=== PATIENT | female | born 1940 | race Caucasian/White ===

== ENCOUNTER 2023-07-26 09:05 | Inpatient (IN) | payer MEDICARE, SELFPAY ==
[2023-07-25 12:11] VITALS: BP 137/71
[2023-07-25 12:35] LABS: % Basophils 0.1 % (0-2); % Immature Granulocytes 0.5 % (0-0.5); % Lymphocytes 6.7 % (20.5-51.1); % Monocytes 8.1 % (1.7-9.3); % Neutrophils 84.6 % (42.2-75.2); Absolute Immature Granulocytes 0.1 10^3/uL (0-0.05); Absolute Lymphocytes 0.9 10^3/uL (1.2-3.4); Absolute Monocytes 1.1 10^3/uL (0.1-0.6); Absolute Neutrophils 11.3 10^3/uL (1.4-6.5); Hematocrit 30.7 % (37.0-47.0); Hemoglobin 10.7 g/dL (12.0-16.0); Mean Corp Hgb Conc. 34.9 g/dL (33.0-37.0); Mean Corpuscular Hgb 28.3 pg (27.0-31.0); Mean Corpuscular Volume 81.2 fL (81.0-99.0); Mean Platelet Volume 9.8 fL (7.4-10.4); Nucleated Red Blood Cells % 0 %; Platelet Count 183 10^3/uL (130-400); Red Blood Cell Count 3.78 10^6/uL (4.20-5.40); White Blood Cell Count 13.4 10^3/uL (4.8-10.8)
[2023-07-25 12:59] LABS: ALT (SGPT) 17 U/L (0-35); AST (SGOT) 19 U/L (14-36); Albumin 3.8 g/dl (3.5-5.0); Alkaline Phosphatase 57 U/L (38-126); Blood Urea Nitrogen 9 mg/dl (7-17); Calcium 9.1 mg/dl (8.4-10.2); Carbon Dioxide 23 mmol/L (22-30); Chloride 99 mmol/L (98-107); Glucose 219 mg/dl (70-99); Lipase 40 U/L (23-300); Potassium 3.9 mmol/L (3.5-5.1); Sodium 129 mmol/L (135-145); Total Bilirubin 3.2 mg/dl (0.2-1.3); Total Protein 6.7 g/dl (6.3-8.2); eGFR > 60.00
[2023-07-25 13:05] LABS: Troponin I 0.034 ng/ml
--- NOTE | 2023-07-25 15:27 | ED.GENMED ---
History of Present Illness
<Prabha Olsen PA-C - Last Filed: 07/25/23 18:07>
General
Chief Complaint: Abdominal Pain
Source: patient
Exam Limitations: none
Time Seen by Provider: 07/25/23 15:26
Nursing documentation reviewed up to this point in time: agreed with
Travel History
Have you had any contact with someone who has COVID-19?: No
Do you have any symptoms of coronavirus? Fever > 100 degrees, chills, cough, shortness of breath, sore throat, loss of taste or smell, muscle aches, or headache?: No
History of Present Illness
History of Present Illness:
82 y/o female with PMH of afib on eliquis, HTN, HLP, sleep apnea, diabetes, presenting to the emergency department today with abdominal pain and nausea that started last night. Patient has never had anything like this before. Patient states that the
pain started out of no where and she immediately got nausea and started to dry heave. Patient also states that she has had loose stools as of late. Patient also states that her chronic shortness of breath has gotten worse this past week, and patient
also states that she has had some dizziness when she walks. Patient states that her pain subsides when she stays still, but her pain returns with any movement. Patient denies chest pain, syncopal episodes, coughing, upper respiratory symptoms,
sick contacts. Patient denies daily alcohol use.
Review of Systems
<Prabha Olsen PA-C - Last Filed: 07/25/23 18:07>
Review of Systems
All Other Systems: ROS reviewed and negative except as documented in HPI and ROS
Phy Exam
<Prabha Olsen PA-C - Last Filed: 07/25/23 18:07>
Physical Exam
Physical Exam:
Vitals: Patient's vital signs are stable
General: Patient is well appearing and in no acute distress
Skin: Warm and dry, no rashes or lesions
Head: Normocephalic, atraumatic
Eyes: No nystagmus. EOMs intact.
Cardiac: Regular rate and rhythm, 2+ systolic murmur heard
Peripheral Vascular: Left sided patellar ecchymosis. No lower extremity edema. 2+ DP pulses b/l.
Pulm: Normal respiratory effort. Crackles heard in left lower lobe.
Abdomen: Mild tenderness to palpation in the epigastric area. No organomegaly. No rebound tenderness, no rigidity.
Neuro: CN II-XII intact. AAOx3. No focal neurologic deficits.
Course
<Prabha Olsen PA-C - Last Filed: 07/25/23 18:07>
Orders/Labs/Results
Orders:
Orders
07/25/23 12:18
Electrocardiogram (*1) Urgent
Reason for Study: Chest Pain
EKG- Treatment ONCE
07/25/23 12:21
Complete Blood Count/With Diff Urgent
Comprehensive Metabolic Panel Urgent
Lipase Urgent
Troponin I Urgent
07/25/23 15:52
CR Chest - 2 Views Urgent
Comment:
Reason For Exam: shortness of breath
07/25/23 15:55
0.9% Sodium Chloride 500 ml [Nss] 500 ml IV BOLUS
07/25/23 16:09
Ondansetron Injectable [Zofran] 4 mg IV NOW STA
US Abdomen Limited Urgent
Comment:
Reason For Exam: right upper quadrant (s/p cholecystectomy)
07/25/23 16:38
Troponin I Urgent
Urinalysis Reflex To Culture Urgent
Date Specimen was Collected: 07/25/23
Time Specimen was Collected: 16:36
Urine Microscopic Reflex Cult Urgent
Influenza A+B Rapid Molecular Urgent
MELODY Source: Nasal Swab
Specimen Description:
Urine Culture Urgent
MELODY Source: U
Specimen Description:
Date Specimen was Collected: 07/25/23
Time Specimen was Collected: 16:36
07/25/23 17:30
Sulfamethox./Trimethoprim Ds [Bactrim Ds 800 mg/160 mg] 1 tablet PO NOW STA
Abnormal Lab Results
07/25/23 07/25/23
12:21 16:38
WBC 13.4 H 10^3/uL
(4.8-10.8)
RBC 3.78 L 10^6/uL
(4.20-5.40)
Hgb 10.7 L g/dL
(12.0-16.0)
Hct 30.7 L %
(37.0-47.0)
Abs Immat Gran (auto) 0.1 H 10^3/uL
(0-0.05)
Absolute Neuts (auto) 11.3 H 10^3/uL
(1.4-6.5)
Absolute Lymphs (auto) 0.9 L 10^3/uL
(1.2-3.4)
Absolute Monos (auto) 1.1 H 10^3/uL
(0.1-0.6)
Neutrophils % 84.6 H %
(42.2-75.2)
Lymphocytes % 6.7 L %
(20.5-51.1)
Sodium 129 L mmol/L
(135-145)
Glucose 219 H mg/dl
(70-99)
Total Bilirubin 3.2 H mg/dl
(0.2-1.3)
Urine Ketones 1+ A
(Negative)
Ur Occult Blood Reflex Trace A
(Negative)
Urine Nitrite (Reflex) Positive A
(Negative)
Leukocyte Esterase Rfl 2+ A
(Negative)
Urine WBC (Reflex) 30-40 A /HPF
(0-5)
Urine Bacteria (Reflex) Many A
(Negative)
Urine Albumin (Reflex) 1+ A
(Neg - Trace)
07/25/23 12:21
07/25/23 12:21
Vital Signs
Initial and Last Documented VS:
Initial Vital Signs
Temp Pulse Resp BP Pulse Ox
99.6 F 80 18 137/71 95
07/25/23 12:11 07/25/23 12:11 07/25/23 12:11 07/25/23 12:11 07/25/23 12:11
Last Documented Vital Signs
Temp Pulse Resp BP Pulse Ox
99.6 F 98 10 137/47 96
07/25/23 12:11 07/25/23 16:31 07/25/23 16:31 07/25/23 16:31 07/25/23 16:31
<Aston Clark, DO - Last Filed: 07/25/23 17:26>
Orders/Labs/Results
Orders:
Orders
07/25/23 12:18
Electrocardiogram (*1) Urgent
Reason for Study: Chest Pain
EKG- Treatment ONCE
07/25/23 12:21
Complete Blood Count/With Diff Urgent
Comprehensive Metabolic Panel Urgent
Lipase Urgent
Troponin I Urgent
07/25/23 15:52
CR Chest - 2 Views Urgent
Comment:
Reason For Exam: shortness of breath
07/25/23 15:55
0.9% Sodium Chloride 500 ml [Nss] 500 ml IV BOLUS
07/25/23 16:09
Ondansetron Injectable [Zofran] 4 mg IV NOW STA
US Abdomen Limited Urgent
Comment:
Reason For Exam: right upper quadrant (s/p cholecystectomy)
07/25/23 16:38
Troponin I Urgent
Urinalysis Reflex To Culture Urgent
Date Specimen was Collected: 07/25/23
Time Specimen was Collected: 16:36
Urine Microscopic Reflex Cult Urgent
Influenza A+B Rapid Molecular Urgent
MELODY Source: Nasal Swab
Specimen Description:
Urine Culture Urgent
MELODY Source: U
Specimen Description:
Date Specimen was Collected: 07/25/23
Time Specimen was Collected: 16:36
07/25/23 17:30
Sulfamethox./Trimethoprim Ds [Bactrim Ds 800 mg/160 mg] 1 tablet PO NOW STA
Abnormal Lab Results
07/25/23 07/25/23
12:21 16:38
WBC 13.4 H 10^3/uL
(4.8-10.8)
RBC 3.78 L 10^6/uL
(4.20-5.40)
Hgb 10.7 L g/dL
(12.0-16.0)
Hct 30.7 L %
(37.0-47.0)
Abs Immat Gran (auto) 0.1 H 10^3/uL
(0-0.05)
Absolute Neuts (auto) 11.3 H 10^3/uL
(1.4-6.5)
Absolute Lymphs (auto) 0.9 L 10^3/uL
(1.2-3.4)
Absolute Monos (auto) 1.1 H 10^3/uL
(0.1-0.6)
Neutrophils % 84.6 H %
(42.2-75.2)
Lymphocytes % 6.7 L %
(20.5-51.1)
Sodium 129 L mmol/L
(135-145)
Glucose 219 H mg/dl
(70-99)
Total Bilirubin 3.2 H mg/dl
(0.2-1.3)
Urine Ketones 1+ A
(Negative)
Ur Occult Blood Reflex Trace A
(Negative)
Urine Nitrite (Reflex) Positive A
(Negative)
Leukocyte Esterase Rfl 2+ A
(Negative)
Urine WBC (Reflex) 30-40 A /HPF
(0-5)
Urine Bacteria (Reflex) Many A
(Negative)
Urine Albumin (Reflex) 1+ A
(Neg - Trace)
07/25/23 12:21
07/25/23 12:21
Vital Signs
Initial and Last Documented VS:
Initial Vital Signs
Temp Pulse Resp BP Pulse Ox
99.6 F 80 18 137/71 95
07/25/23 12:11 07/25/23 12:11 07/25/23 12:11 07/25/23 12:11 07/25/23 12:11
Last Documented Vital Signs
Temp Pulse Resp BP Pulse Ox
99.6 F 98 10 137/47 96
07/25/23 12:11 07/25/23 16:31 07/25/23 16:31 07/25/23 16:31 07/25/23 16:31
<Prabha Olsen PA-C - Last Filed: 07/25/23 18:07>
MDM/Problems Addressed
Differential Diagnosis Includes:
ddx include gastritis, hepatitis, ACS, pancreatitis, atrial fibrillation, pneumonia, diaphragmatic spasm
MDM/Problems Addressed:
dyspepsia
shortness of breath
Chronic conditions affecting care: DM, HTN and Arrhythmia
Acute Exacerbation and/or Progression of Chronic Illness: DM, HTN and Arrhythmia
<Prabha Olsen PA-C - Last Filed: 07/25/23 18:07>
*Pulse Oximetry
Patient hypoxic: no
*EKG
Interpreted by ED Provider?: Yes
EKG Intrepretation Date: 07/25/23
Interpretation: abnormal
Comparison EKG: changes noted
Heart Rate: 83
Rate: normal
Rhythm: a-fib
Lima: normal axis
Interval: normal interval
QRS Pattern: normal QRS
Ischemia: non-specific ST changes (mild ST segment elevation in V1)
*Critical Care Note
Total Time (30-74mins, 75-104mins- exclusive of procedures): Not Applicable
Data Reviewed
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
Source: patient
<Prabha Olsen PA-C - Last Filed: 07/25/23 18:07>
Patient Management
Escalation/DeEscalation of care consider admission/obs:
82 y/o female with PMH of afib on eliquis, HTN, HLP, sleep apnea, diabetes, presenting to the emergency department today with abdominal pain and nausea that started last night. Also has acute on chronic SOB. Troponin I 0.034, repeat pending. EKG
significant for atrial fibrillation and non-specific ST changes including mild ST segment elevation in V1. Also has elevated total bili. Right upper quadrant US unremarkable. Also found to have UTI, bactrim started. Considering new EKG findings,
non-negative troponin, dyspnea upon exertion, and no clear cause to patient's epigastric pain, patient will be admitted for further workup and DC rule out. Patient accepted by hospitalist team. Patient in agreement with plan.
ED Attending Note
<Prabha Olsen PA-C - Last Filed: 07/25/23 18:07>
-
Portions of this chart may have been created with voice recognition software.� Occasional wrong word or��sound alike� substitutions may have occurred due to the inherent limitations of voice recognition software.
<Aston Clark DO - Last Filed: 07/25/23 17:26>
ED Attending Note
Patient seen and examined by attending physician: Yes
I performed the substantive portion of visit, reviewed & personally made and approve the management plan that is documented in note by myself or IRENE.: Yes
ED Attending Note:
Seen with JOSH examined independently 82-year-old female A-fib recently [place] CAD status post stenting presents with nausea epigastric pain dry heaves, denies chest pain EKG noted initial troponin noted repeat has been sent
total bili is elevated ultrasound unremarkable sodium is down
Conglomeration of symptoms believe she should be admitted rule out DC, consideration for advanced imaging, correct her sodium
Discharge Plan
Departure
Admit to: Med/Surg
Presentation/result/management discussed w/ accepting MD/DO: Hospitalist
Patient with high blood pressure during this ER visit?: Yes
Condition: Good
Discharge Problem:
Acute hyponatremia, Acute epigastric pain
Prescriptions:
No Action
losartan 25 MG tablet
25 mg PO HS
metoprolol succinate 25 MG tablet extended release 24 hr
50 mg PO BID
Eliquis 5 MG tablet
5 mg PO BID
duloxetine 60 mg Capsule, Delayed Rel Sprinkle
60 mg PO DAILY
diphenhydramine HCl [Benadryl] 25 mg Capsule
25 mg PO HS
diphenhydramine-acetaminophen [Tylenol PM Extra Strength] 25-500 mg Tablet
1 tab PO HS
metformin 500 mg Tablet
500 mg BID
clopidogrel [Plavix] 75 mg tablet
75 mg PO DAILY Qty: 90 3RF
Rx Instructions:
Take 300mg (4 pills) tonight at 8pm, then start 75mg daily in AM
atorvastatin [Lipitor] 80 mg tablet
80 mg PO HS Qty: 90 3RF
Rx Instructions:
STOP pravastatin
aspirin [aspirin] 81 mg tablet,delayed release (DR/EC)
81 mg PO DAILY Qty: 5 0RF
Rx Instructions:
DAILY for 5 days, then STOP
famotidine [Pepcid] 40 mg tablet
40 mg PO DAILY Qty: 90 3RF
Referrals:
Christian Gandara DO [Family Provider] -
Interventions
Interventions:
*Risk Screen - Suicide Last Done: 07/25/23 12:11
*General Assessment Last Done: 07/25/23 12:11
*Neglect/Abuse Screening Last Done: 07/25/23 12:11
BH-Sbcetd-Wbmintrlty Assessment Last Done: 07/25/23 16:42
Discharge Date and Time
Print Language: [place]
[2023-07-25 16:31] VITALS: BP 137/47
[2023-07-25] MEDS: NSS 500 IV (16:33)
[2023-07-25] MEDS: ZOFRAN 4 MG IV ×2 (16:33→21:42)
[2023-07-25 16:44] LABS: Urine Albumin 1+ (Neg - Trace); Urine Bilirubin Negative (Negative); Urine Character Slightly Cloudy (Clear); Urine Color Yellow; Urine Glucose Negative (Negative); Urine Ketone 1+ (Negative); Urine Leukocyte 2+ (Negative); Urine Nitrite Positive (Negative); Urine Occult Blood Trace (Negative); Urine Urobilinogen Negative (Neg - 1+)
[2023-07-25 16:51] LABS: Urine Bacteria Many (Negative); Urine Urothelial Cell 0-2 /LPF (FEW); Urine White Cell 30-40 /HPF (0-5)
[2023-07-25 16:52] LABS: Urine Red Blood Cell 0-2 /HPF (0-2)
[2023-07-25] MEDS: BACTRIM DS 800 MG/160 MG 1 TABLET PO (17:51)
--- NOTE | 2023-07-25 18:27 | HPS.HSE ---
Addendum entered and electronically signed by Jaydon Min MD 07/25/23 19:45:
Protonix changed to Pepcid given allergy.
Original Note:
Family Physician
-
Family Physician: Christian Gandara
Chief Complaint
-
abdominal pain
History of Present Illness
82-year-old female past medical history of atrial fibrillation on Eliquis, CAD status post stent, hypertension, hyperlipidemia, sleep apnea, diabetes, obesity, GERD, presenting for epigastric abdominal pain started suddenly last night. This was
associated with dry heaving and spasms in the epigastric region. 1 time she notes that she felt pulsating in the region. Pain is worse with movement and improves when she stays still. Pain does not radiate to the back or flanks does radiate to
the chest. During one instance of pain she felt like she was going to pass out but did not pass out.
She states that she had ablation for atrial fibrillation last year. She was visiting her son in [facility] where she has been for the past month. She was admitted there for symptomatic atrial fibrillation. She was given 2 medications to take. She
has episodic instances of chest pressure/shortness of breath which come on randomly.
She denies any urinary symptoms or frequency. She denies fevers or chills. Denies difficulty swallowing or pain with swallowing or burping. Denies history of gastric ulcers.
She denies smoking or alcohol use.
Medical History
Past Medical History
Past Medical History: Reports Other (atrial fibrillation on Eliquis, CAD status post stent, hypertension, hyperlipidemia, sleep apnea, diabetes, obesity, GERD)
Past Surgical History: Reports Other (Appendectomy, cholecystectomy, colon resection for polyp, orthopedic surgeries, carpal tunnel surgery, back surgery)
Social History
Tobacco: Non-smoker
Alcohol: None
Drug: None
Family History
Family History: Not pertinent
Allergies / Home Medications
Allergies reflects when Allergies were last updated in [facility].
Home Medications with original date entered in [facility]
Allergy/Medication List:
Allergies
Allergy/AdvReac Type Severity Reaction Status Date / Time
HEMALATHA Inhibitors Allergy cough Verified 03/16/23 07:27
amoxicillin Allergy Rash Verified 03/16/23 07:27
niacin Allergy flushing Verified 03/16/23 07:27
oxaprozin Allergy chemical Verified 03/16/23 07:27
induced
hepatitis
pantoprazole [From Protonix] Allergy rapid Verified 03/16/23 07:27
heart rate
vancomycin Allergy back pain Verified 03/16/23 07:27
Home Medications
apixaban 5 mg tablet (Eliquis) 5 mg PO BID 10/01/21
metoprolol succinate 25 mg tablet,extended release 24 hr 50 mg PO BID 10/01/21
duloxetine 60 mg capsule,delayed release sprinkle 60 mg PO DAILY 03/03/22
atorvastatin 80 mg tablet (Lipitor) 80 mg PO HS #90 tabs 03/16/23
clopidogrel 75 mg tablet (Plavix) 75 mg PO DAILY #90 tabs 03/16/23
metformin 500 mg tablet 500 mg PO BID 03/16/23
Unknown Med From [place] 1 tab PO BID 07/25/23
Unknown Med From [place] 1 tab PO DAILY 07/25/23
Review of Systems
-
History Source: Patient
A 12 point ROS was completed and negative except as noted: Yes
Constitutional: Reports No Symptoms
EENT: Reports No Symptoms
Respiratory: Reports No Symptoms
Cardiac: Reports See HPI
Abdomen/GI: Reports See HPI
: Reports No Symptoms
Musculoskeletal: Reports No Symptoms
Skin: Reports No Symptoms
Neurological: Reports No Symptoms
Endocrine: Reports No Symptoms
Hematologic/Lymphatic: Reports No Symptoms
Psych: Reports No Symptoms
Physical Exam
Vital Signs
Vital Signs
Temp Pulse Resp BP Pulse Ox
99.6 F 98 10 137/47 96
07/25/23 12:11 07/25/23 16:31 07/25/23 16:31 07/25/23 16:31 07/25/23 16:31
Physical Exam
General: Well Developed, Well Nourished and No Apparent Distress
HEENT: NormoCephalic, Moist mucous membranes and Atraumatic
Respiratory: Clear
Cardiac: S1/S2 and Regular Rhythm; No Murmur or Rub
GI: Soft, Non Distended, Normal Bowel Sounds and Tender (epigastric tenderness ); No Organomegaly
Rectal: Deferred by Provider
Musculoskeletal: No Clubbing, No Cyanosis and No Edema
Skin: No Rash
Neuro: Nonfocal/grossly intact
Laboratory Results
-
07/25/23 12:21
07/25/23 12:21
Laboratory Results
Total Bilirubin 3.2 mg/dl (0.2-1.3) H 07/25/23 12:21
AST 19 U/L (14-36) 07/25/23 12:21
ALT 17 U/L (0-35) 07/25/23 12:21
Alkaline Phosphatase 57 U/L (38-126) 07/25/23 12:21
Troponin I 0.030 ng/ml 07/25/23 16:38
Lipase 40 U/L (23-300) 07/25/23 12:21
Data Reviewed
-
Lab Data: Labs Reviewed by me
Old Records: Reviewed
Impression/Plan
-
IMPRESSION:
PLAN:
# Epigastric abdominal pain possibly due to gastritis/ulcer evaluate for aortic aneurysm
-Epigastric region tender to palpation
-Lipase unremarkable
-Check CTA chest/abdomen to rule out aortic pathology and evaluate abdomen for sources of pain
-Empiric Protonix
# Symptomatic recurrence of atrial fibrillation
# Abnormal EKG with delta wave
-EKG showed atrial fibrillation, left anterior fascicular block, delta waves in lateral leads which appear new without any notable ST T wave changes
-Initial troponin 0.034, trending down
-Continue metoprolol
-Continue Eliquis
-Cardiology consulted
# Urinary tract infection
-Abdominal symptoms unlikely secondary to UTI
-Leukocytosis
-UA shows 30-40 WBC, positive nitrates, positive leukocyte esterase
-Urine culture pending
-Levaquin given allergies
Coronary artery disease status post stent
-Continue Plavix
History of GERD
-Protonix started
Essential hypertension
-Continue losartan
Hyperlipidemia
-Continue statin
Obstructive sleep apnea
-Continue BiPAP at night
Type 2 diabetes
-Hold metformin
-Insulin sliding scale
Obesity
History of back surgery/chronic back pain
-Continue duloxetine
Full code
DVT prophylaxis-Eliquis
Regular diet
--- NOTE | 2023-07-25 19:44 | EDRN ---
Dr. Min made aware pt is allergic to protonix which is ordered BID. Dr. Min acknowledged and will discontinue protonix.
[2023-07-25] MEDS: PEPCID 20 MG IV (20:30)
[2023-07-25] MEDS: NSS (PRESERVATIVE FREE) 8 ML IV (20:30)
[2023-07-25] MEDS: FLUSH (NSS) 1 FLUSH IV (20:31)
--- NOTE | 2023-07-25 21:30 | EDRN ---
Pt yelling out help, this RN entered room to see what pt needed. Pt found on floor at end of stretcher, pt was sitting up against stretcher. Pt states 'I lost my balance, slipped out of bed and fell to the ground, I needed to go to the bathroom'. Pt
denies hitting her head or LOC. Pt denies any neck pain or c spine tenderness. Pt assisted back up and placed into the stretcher. Renea De La Torre made aware of pts fall and she is coming to bedside. Pt with GCS of 15, blood sugar 210, BP 160/79, HR
96, RR 22, Sao2 95% on RA. Pt denies pain or any injuries from fall. Both stretcher side rails raised and pt placed on purwick.
[2023-07-25 21:38] VITALS: BP 160/79
[2023-07-25 21:45] LABS: Glucose - Point of Care 210 mg/dl (70-99)
--- NOTE | 2023-07-25 21:57 | W.PN.UPDATE ---
Update Note
Progress Note Update
notified by RN that pt had unwitnessed fall
Pt states she did not know that she had to call for assistance to get oob. She was getting oob and 'slid' off bed onto her butt.
PT denies injuries. EAST
PT adamantly denies hitting head. Explained that she does take eliquis so imperative she is honest. Again denies hitting head.
Explained to pt is she should have any pain later to let nurse know. And to please ring for assistance going forward.
PT is AAoX3
[2023-07-25 22:00] VITALS: BP 176/84
[2023-07-25 22:10] VITALS: PULSE 2; PULSE 86
[2023-07-25 23:00] VITALS: BP 160/82
[2023-07-26] VITALS (12 sets, daily range): BP systolic 96–167; BP diastolic 55–84; PULSE 2–88; BMI 38.5
[2023-07-26] MEDS: TOPROL XL 50 MG PO ×2 (00:29→09:43)
[2023-07-26] MEDS: ELIQUIS 5 MG PO ×3 (00:29→20:13)
[2023-07-26] MEDS: LIPITOR 80 MG PO ×2 (00:29→21:34)
[2023-07-26] MEDS: LEVAQUIN 150 IV (00:30)
[2023-07-26] MEDS: TYLENOL 650 MG PO ×2 (01:50→20:13)
--- NOTE | 2023-07-26 01:50 | PTCARENOTE ---
Pt arrived to room 414-02. Pt transferred to bed from stretcher. Pt AAOx3, VSS- temp 100.8 noted; tylenol ordered and administered. Pt c/o nausea, zofran administered prior to arriving on 4W. Pt in no signs of acute distress, respirations regular.
Pt placed on bed alarm d/t fall in ED. Pt oriented to room, call ordaz placed within reach.
--- NOTE | 2023-07-26 06:53 | W.PN.HOSP.TC ---
Today's Communication/Plan
-
cont abx
blood cultures and lactic acid
check strep legionella urine antigen
ID Cardio GI eval
Check BNP ECHO
cont Eliquis Plavix
IV famotidine BID
oxygen supplementation as necessary goal sat 92%
Assessment / Plan
Assessment / Plan
Physical Exam
General: mild distress due to nausea vomiting. Morbid Obesity
HEENT: NormoCephalic, Moist mucous membranes and Atraumatic
Respiratory: Clear
Cardiac: Irregularly irregular mild tachy; No Murmur or Rub
GI: Soft, Non Distended, Normal Bowel Sounds and Tender (epigastric tenderness ); No Organomegaly
Musculoskeletal: No Clubbing, No Cyanosis and No Edema
Skin: No Rash
Neuro: Nonfocal/grossly intact
82F afib CAD stent Feb 2023 Eliquis Plavix HTN HLD DM YOSELIN BIPAP bedtime Obesity GERD
# Epigastric abdominal pain spasm nausea vomiting unclear etiology
-possible GERD vs PUD
-Epigastric region tender to palpation
-Lipase unremarkable
-CTA chest/abdomen negative for dissection aneurysm or pulmonary embolism, notes mild fatty liver disease, left lower lobe lung pna with small left pleural effusion
-Empiric IV pepcid, allergic to protonix
-GI eval requested
# Symptomatic recurrence of atrial fibrillation
# Abnormal EKG with delta wave
-EKG showed atrial fibrillation, left anterior fascicular block, delta waves in lateral leads which appear new without any notable ST T wave changes
-Initial troponin 0.034, trended down
-Continue metoprolol
-Continue Eliquis
-Recently started on Amiodarone and Digoxin following hospitalization in [place] last month while visiting son,
-check digoxin level in AM
-Cardiology consulted
-rate relatively well controlled at this time, holding Amiodarone and Digoxin at this time pending cardio eval
-check BNP, ECHO
#Possible Urinary tract infection
-Abdominal symptoms unlikely secondary to UTI
-Leukocytosis
-UA shows 30-40 WBC, positive nitrates, positive leukocyte esterase
-Urine culture pending
-Levaquin given allergies
Possible Sepsis PNA (Leukocytosis, Tachycardia)
Acute Hypoxic Insufficiency/Failure (requiring 2L saturating 93%)
-Left Lower Lobe PNA as noted on CT
-COVID Flu neg
-check strep legionella urine antigen
-Started on Levaquin as above
-Check Lacti Acid
-ID eval requested
Coronary artery disease status post stent
-Continue Plavix
History of GERD
-Famotidine IV BID started
Essential hypertension
-Continue losartan
Hyperlipidemia
-Continue statin
Obstructive sleep apnea
-Continue BiPAP at night
Type 2 diabetes
-Hold metformin
-Insulin sliding scale
Obesity
History of back surgery/chronic back pain
-Continue duloxetine
Full code
DVT prophylaxis-Eliquis
Regular diet
I spent a total of 60 minutes with the patient or on the floor. More than 50% of this time involved counseling and coordination of care.
Anticipated Discharge: > 48 hours
Subjective/Interval History
-
Date of Service: July 26, 2023
Reports sleeping well last night following admission. However dry heaves coughing in morning with associate nausea vomiting. Patient on 2L nasal cannula saturating 93%. Non-labored respiration. Noted fever overnight peak 100.8 since resolved.
Objective Data
-
Labs:
Laboratory Results
07/26/23
06:31
WBC Pending
Hgb Pending
Hct Pending
Plt Count Pending
Sodium Pending
Potassium Pending
Chloride Pending
Carbon Dioxide Pending
BUN Pending
Creatinine Pending
Glucose Pending
Calcium Pending
Total Bilirubin Pending
AST Pending
ALT Pending
Alkaline Phosphatase Pending
Vital Signs:
Vital Signs
Temp Pulse Resp BP Pulse Ox
100.4 F H 88 16 137/63 94
07/26/23 03:00 07/26/23 03:00 07/26/23 03:00 07/26/23 03:00 07/26/23 03:00
I&O
07/24/23 07/25/23 07/26/23
06:59 06:59 06:59
Intake Total 420 / 420
Output Total 350 / 350
Balance 70 / 70
[2023-07-26 07:38] LABS: % Basophils 0.3 % (0-2); % Immature Granulocytes 0.7 % (0-0.5); % Lymphocytes 9.5 % (20.5-51.1); % Monocytes 11.2 % (1.7-9.3); % Neutrophils 78.3 % (42.2-75.2); Absolute Immature Granulocytes 0.1 10^3/uL (0-0.05); Absolute Lymphocytes 1.3 10^3/uL (1.2-3.4); Absolute Monocytes 1.5 10^3/uL (0.1-0.6); Absolute Neutrophils 10.7 10^3/uL (1.4-6.5); Hemoglobin 10.6 g/dL (12.0-16.0); Mean Corp Hgb Conc. 34.2 g/dL (33.0-37.0); Mean Corpuscular Hgb 28.4 pg (27.0-31.0); Mean Corpuscular Volume 83.1 fL (81.0-99.0); Mean Platelet Volume 10.1 fL (7.4-10.4); Nucleated Red Blood Cells % 0 %; Platelet Count 124 10^3/uL (130-400); Red Blood Cell Count 3.73 10^6/uL (4.20-5.40); Red Cell Dist. Width 14.2 % (11.5-14.5); White Blood Cell Count 13.7 10^3/uL (4.8-10.8)
[2023-07-26 08:00] LABS: Glucose - Point of Care 161 mg/dl (70-99)
[2023-07-26 08:04] LABS: ALT (SGPT) 15 U/L (0-35); AST (SGOT) 24 U/L (14-36); Albumin 3.6 g/dl (3.5-5.0); Alkaline Phosphatase 43 U/L (38-126); Blood Urea Nitrogen 10 mg/dl (7-17); Calcium 8.5 mg/dl (8.4-10.2); Carbon Dioxide 19 mmol/L (22-30); Chloride 100 mmol/L (98-107); Estimated Creatinine Clearance 76 ml/min; Glucose 164 mg/dl (70-99); Potassium 4.2 mmol/L (3.5-5.1); Sodium 130 mmol/L (135-145); Total Bilirubin 3.1 mg/dl (0.2-1.3); Total Protein 6.6 g/dl (6.3-8.2); eGFR > 60.00
[2023-07-26 08:56] LABS: COVID-19 Antigen Negative (Negative)
[2023-07-26] MEDS: PLAVIX 75 MG PO (09:43)
[2023-07-26] MEDS: CYMBALTA DELAYED RELEASE 60 MG PO (09:43)
[2023-07-26] MEDS: NSS (PRESERVATIVE FREE) 8 ML IV ×2 (09:44→20:14)
[2023-07-26] MEDS: PEPCID 20 MG IV ×2 (09:44→20:14)
[2023-07-26 10:06] LABS: Lactic Acid 1.8 mmol/L (0.7-2.0)
--- NOTE | 2023-07-26 10:21 | CON.CAR ---
Addendum entered and electronically signed by Marcus Guerrero DO 07/26/23 15:57:
I saw and examined the patient.
The Integration Solution Architect's note was reviewed and I agree with the note.
Comment:
Plan:
Cont broad-spectrum antibiotics per primary service for PNA and possible UTI. Cultures pending.
Wean O2 as able.
Increase AFib burden, start Amiodarone for better HR control and rhythm control. She remains on Eliquis for prophylaxis.
Stop Digoxin and continue beta javier for rate control and adjust beta javier as needed for better HR control and bp control.
Check Dig level.
Eventual consideration for cv once infection improved and pending clinical course
Check echo
Continue Plavix in addition to anticoagulation in the setting of LAD stent 02/2023. Cont medical therapy of nonMI trop.
Monitor EKG
Original Note:
Consultation
Consultation Request
Date/Time Consultation Performed: 07/26/23
Requesting Provider: Dr. Min
Performing Provider: Jazmine Alvarado PA-C for Dr. Guerrero
Reason for Consultation: abnormal EKG, afib
Medical History
-
Chief Complaint: epigastric pain, dry heaves
History of Present Illness:
Patient is an 82-year-old female with past medical history of CAD status post LAD PCI 02/2023, paroxysmal atrial fibrillation, diabetes, hypertension, hyperlipidemia, obstructive sleep apnea who had recently visited her son in [facility] last month.
She tells me she was hospitalized during her visit there. She is a poor historian. She states she was walking with her son and developed epigastric pain, squeezing in sensation, which took her breath away. She had the feeling of needing to pass
out, as well as urinary incontinence. She was admitted and in A-fib with rapid response. She denies having a cardioversion, so presumably spontaneously converted on 'IV medication'. She was started on amiodarone 200 mg daily as well as digoxin
0.25 mg twice daily, which she has continued since that time. She returned home last week. She states he has been jet lag, however has noted 'issues with her A-fib' with elevated heart rates, as well as dyspnea on exertion. She denies chest pain,
cough. She presented to [facility] yesterday as with significant dry heaves all day, and also had fever on arrival. Chest CT negative for dissection or PE, however did reveal pneumonia. COVID-negative. She is in atrial fibrillation with
heart rate approximately 100 bpm. Cardiology consulted as EKG abnormal.
PMH:
Recent hospitalization in [facility] 06/2023 for afib, spontaneously converted, started on amio and digoxin
CAD status post LAD PCI 02/2023
Paroxysmal atrial fibrillation
Chronic anticoagulation with Eliquis
History of PVI 02/2022
PAT
Hypertension
HLD
Diabetes
Sleep apnea with CPAP
Obesity
History of cervical spinal fusion 04/2021
Past Medical History
Past Medical History: Other (in HPI)
Social History
Tobacco: Former Smoker
Alcohol: Occasional
Living: Alone
Employment: Retired
Family History
Family History: CAD, Diabetes and Hypertension
Allergies / Home Medications
Allergy/AdvReac Type Severity Reaction Status Date / Time
HEMALATHA Inhibitors Allergy cough Verified 03/16/23 07:27
amoxicillin Allergy Rash Verified 03/16/23 07:27
niacin Allergy flushing Verified 03/16/23 07:27
oxaprozin Allergy chemical Verified 03/16/23 07:27
induced
hepatitis
pantoprazole [From Protonix] Allergy rapid Verified 03/16/23 07:27
heart rate
vancomycin Allergy back pain Verified 03/16/23 07:27
�Medication �Instructions �Recorded �Confirmed �Type
apixaban 5 mg tablet (Eliquis) 5 mg PO BID atrial fibrillation 10/01/21 07/25/23 History
metoprolol succinate 25 mg 50 mg PO BID Blood Pressure 10/01/21 07/25/23 History
tablet,extended release 24 hr
duloxetine 60 mg capsule,delayed 60 mg PO DAILY Depression 03/03/22 07/25/23 History
release sprinkle
atorvastatin 80 mg tablet (Lipitor) 80 mg PO HS #90 tabs 03/16/23 07/25/23 Rx
clopidogrel 75 mg tablet (Plavix) 75 mg PO DAILY #90 tabs 03/16/23 07/25/23 Rx
metformin 500 mg tablet 500 mg PO BID diabetes 03/16/23 07/25/23 History
amiodarone 200 mg tablet 200 mg PO DAILY Arrhythmia 07/25/23 07/25/23 History
digoxin 250 mcg (0.25 mg) tablet 0.25 mg PO BID atrial fibrillation 07/25/23 07/25/23 History
Review of Systems
-
History Source: Patient
All other systems: Negative unless noted
Physical Exam
Vital Signs
Temp Pulse Resp BP Pulse Ox
98.9 F 96 18 148/84 93
07/26/23 07:30 07/26/23 07:30 07/26/23 07:30 07/26/23 08:30 07/26/23 08:30
Lab Results
07/26/23 06:31
07/26/23 06:31
Troponin I 0.030 ng/ml 07/25/23 16:38
Physical Exam
General: No Apparent Distress, Comfortable and Other (on supp O2)
HEENT: Normocephalic, Anicteric and Moist Mucous Membranes
Respiratory: Rhonchi and Non Labored Respirations
Cardiac: S1/S2 and Irregular Rhythm
GI: Soft, Non Tender, Non Distended and Normal Bowel Sounds
Musculoskeletal: No Clubbing, No Cyanosis and No Edema
Skin: Warm and Dry
Neuro: AO x 3
Impression / Plan
-
Primary Radiotelegraph Operator Servicer: Dr. Gupta
Assessment:
Presentation with dry heaving, epigastric pain
Fever
L PNA by chest CT
Acute hypoxic respiratory insufficiency
Abnormal UA
Paroxysmal atrial fibrillation
Chronic anticoagulation with Eliquis
History of PVI 02/2022
Recent hospitalization in [facility] 06/2023 for afib, spontaneously converted, started on amio and digoxin
CAD status post LAD PCI 02/2023
PAT
Hypertension
HLD
Diabetes
Sleep apnea with CPAP
Obesity
History of cervical spinal fusion 04/2021
History of R hemicolectomy
Fatty liver
Hepatic cysts by CT C/A/P
L ovarian cyst
Hyponatremia
ECHO 02/2022: EF 55-60%, small pericardial effusion without hemodynamic compromise
Cath 03/16/23:
1. Successful stenting of the mid to distal LAD with a 2.25 x 15 mm Xience stent that was implanted at nominal pressures then postdilated with a 2.25 mm noncompliant balloon to 16 carola with a nice angiographic result
2. Preserved left ventricular systolic function
Plan:
-Patient presents with dry heaving, epigastric pain and fever. She is being worked up for sepsis with blood cultures pending. She has noted to have an abnormal UA as well as pneumonia by chest CT. Covid/flu negative. Continue broad-spectrum
antibiotics per primary service
-wean supp O2 as able
-She is also noted to be in atrial fibrillation. This appears to have been increasing in frequency over the last month. She had been hospitalized while visiting her son in [facility] approximately 1 month ago and reportedly was started on
amiodarone as well as high-dose digoxin at that time
-Check dig level. Hold digoxin for now
-Continue amiodarone 200mg daily
-Blood pressures elevated. Will increase outpatient Toprol dose to 75 mg twice daily
-Continue Eliquis. She reports no missed outpatient doses
-proBNP pending
-Check echo, last from 2021 with results as above
-Continue Plavix in addition to anticoagulation in the setting of LAD stent 02/2023. No chest pain. Troponins 0.034 and trending down. EKG appears similar to prior, will follow
-may require eventual CV
-also noted to have 'fall' last night per nursing. denies syncope. PT/OT evals
-d/w hospitalist
Data Reviewed
-
EKG: Tracing Personally Visualized and interpreted
CT Scan: Report Reviewed by me
Medical Tests (Nuc Med, Echo etc): Report Reviewed by me
Labs: Labs Reviewed by me
Old Records: Reviewed
--- NOTE | 2023-07-26 10:39 | CON.GI ---
Addendum entered and electronically signed by Doug Rodriguez MD 07/26/23 16:00:
I saw and examined the patient.
The [employer] AD SALES or PA's note was reviewed and I agree with the note.
Comment: 82 yo F pmh CAD on plavix, pAF on Eliquis, colon resection for colon polyps p/w epigastric pain, n/v few days. N/v worse with movement. Epigastric pain no aggrevating/allevating factors. No sick contacts but recent travel to [place] [facility].
Has leukocytosis and fever to 100.5 max.
US/CT with fatty liver and likely PNA.
Diff dx for epigastric pain related to PNA vs A fib vs viral gastroenteritis vs PUD. N/v worse with movement lower suspicion for GI etiology.
Continue pepcid allergy to PPI.
Follow up [facility] Dr. Gramajo outpatient for fatty liver.
Original Note:
Consultation
-
Date/Time Consultation Requested: 07/26/23 0950
Date/Time Consultation Performed: 07/26/23 1130
Requesting Provider: Evan Han MD
Performing Provider: BRIAN Prince, Milvia Rodriguez MD
Reason for Consultation: epigastric pain
Medical History
Chief Complaint / HPI
Chief Complaint: epigastric pain with nausea
History of Present Illness:
Pt is a 82yo with hx CAD prior stent(on Plavix), PAF with prior ablation on Eliquis, colon resection for precancerous polyps, HTN, hyperlipidemia, DM, YOSELIN, bipap, GERD, presents with onset of epigastric pain with nausea and vomiting. In reviewing
with patient she was in [place] [facility] for last 2 months visiting family. 2 weeks after arrival she was hospitalized with shortness of breath and was noted with afib RVR. She was started on new Amiodarone and Digoxin. She retuned last week and now
with continued shortness of breath and epigastric/chest pain. She also associate symptoms with nausea and dry heaves and asked to evaluate. On admission noted with WBC 13,400 bili 3.2 with otherwise normal LFT's and lipase. There was also
concern for sepsis with PNA but asked to see for epigastric pain and possible UTI. Imaging on admission with limited US s/p soco, HM, fatty liver, 2 benign cysts. 07/25/23 CT Chest/abd/pelvis Angio neg dissection, mild dilation of common iliac
artery no PE Parenchymal airspace opacity and groundglass opacity involving the left lower lobe of the lung, which very likely represents pneumonia. There is a small left pleural effusion as well and again noted fatty liver, liver cysts, and 2.4 cm
density left ovary, diverticulosis and prior right hemicolectomy. Pt due for cardiology evaluation with hx recurrent afib 0.34
She currently states epigastric pain is slightly improved. Pain is intermittent and difficulty to say what makes pain better or worse. She just ate a small amount of fruit but no change in symptoms. She denies NSAID use. She otherwise
denies odynophagia, dysphagia, GERd, diarrhea, constipation, or rectal bleeding. Hx EGD 10 years ago and last colonoscopy couple of years ago with polyps.
Past Medical History
Past Medical History: Arrhythmias (afib on Eliquis), CAD, GERD, HTN, Hypercholesterolemia, NIDDM and Other (YOSELIN on Bipap, esophageal spasm vs PUD)
Past Surgical History: Bowel Resection (for precancerous polyps) and Cardiac (prior stent)
Social History
Tobacco: Former Smoker
Alcohol: Occasional (rare)
Drug: None
Living: Alone
Employment: Retired
Family History
Family History: Other (no family hx colon CA or polyps)
Allergies / Home Medications
Allergy/AdvReac Type Severity Reaction Status Date / Time
HEMALATHA Inhibitors Allergy cough Verified 03/16/23 07:27
amoxicillin Allergy Rash Verified 03/16/23 07:27
niacin Allergy flushing Verified 03/16/23 07:27
oxaprozin Allergy chemical Verified 03/16/23 07:27
induced
hepatitis
pantoprazole [From Protonix] Allergy rapid Verified 03/16/23 07:27
heart rate
vancomycin Allergy back pain Verified 03/16/23 07:27
�Medication �Instructions �Recorded
apixaban 5 mg tablet (Eliquis) 5 mg PO BID atrial fibrillation 10/01/21
metoprolol succinate 25 mg 50 mg PO BID Blood Pressure 10/01/21
tablet,extended release 24 hr
duloxetine 60 mg capsule,delayed 60 mg PO DAILY Depression 03/03/22
release sprinkle
atorvastatin 80 mg tablet (Lipitor) 80 mg PO HS #90 tabs 03/16/23
clopidogrel 75 mg tablet (Plavix) 75 mg PO DAILY #90 tabs 03/16/23
metformin 500 mg tablet 500 mg PO BID diabetes 03/16/23
amiodarone 200 mg tablet 200 mg PO DAILY Arrhythmia 07/25/23
digoxin 250 mcg (0.25 mg) tablet 0.25 mg PO BID atrial fibrillation 07/25/23
Review of Systems
-
History Source: Patient
Constitutional: Reports Other (feeling hot )
EENT: Reports No Symptoms
Respiratory: Reports Trouble Breathing
Cardiac: Reports Chest Pain
Abdomen/GI: Reports Abdominal Pain (epigastric ), Nausea and Vomiting
: Reports No Symptoms
Musculoskeletal: Reports No Symptoms
Skin: Reports No Symptoms
Neurological: Reports Weakness
Endocrine: Reports No Symptoms
Hematologic/Lymphatic: Reports No Symptoms
Vital Signs
Temp Pulse Resp BP Pulse Ox
98.9 F 96 18 148/84 93
07/26/23 07:30 07/26/23 07:30 07/26/23 07:30 07/26/23 08:30 07/26/23 08:30
Physical Exam
Exam
General: Well Developed, Well Nourished and No Apparent Distress
HEENT: Normocephalic and Anicteric
Respiratory: Clear
Cardiac: Irregular Rhythm
GI: Soft, Non Distended and Tender (epigastric pain)
Musculoskeletal: No Clubbing and No Cyanosis
Skin: Warm and Dry
Neuro: Awake, Alert and AO x 3
Psych: Calm
Results
WBC 13.7 10^3/uL (4.8-10.8) H 07/26/23 06:31
Hgb 10.6 g/dL (12.0-16.0) L 07/26/23 06:31
Hct 31.0 % (37.0-47.0) L 07/26/23 06:31
MCV 83.1 fL (81.0-99.0) 07/26/23 06:31
Plt Count 124 10^3/uL (130-400) L D 07/26/23 06:31
Absolute Neuts (auto) 10.7 10^3/uL (1.4-6.5) H 07/26/23 06:31
Sodium 130 mmol/L (135-145) L 07/26/23 06:31
Potassium 4.2 mmol/L (3.5-5.1) 07/26/23 06:31
Chloride 100 mmol/L (98-107) 07/26/23 06:31
Carbon Dioxide 19 mmol/L (22-30) L 07/26/23 06:31
BUN 10 mg/dl (7-17) 07/26/23 06:31
Creatinine 0.7 mg/dL (0.6-1.0) 07/26/23 06:31
Calcium 8.5 mg/dl (8.4-10.2) 07/26/23 06:31
Total Bilirubin 3.1 mg/dl (0.2-1.3) H 07/26/23 06:31
AST 24 U/L (14-36) 07/26/23 06:31
ALT 15 U/L (0-35) 07/26/23 06:31
Alkaline Phosphatase 43 U/L (38-126) 07/26/23 06:31
Lipase 40 U/L (23-300) 04/01/24 12:21
Diagnostic Image Results:
07/25/23 CXR No evidence of active cardiopulmonary disease.Subsequent CT angiography of the chest abdomen and pelvis demonstrates focal parenchymal airspace opacity within the left lower lobe of the lung, mainly superiorly. I perceived this opacity at
the time of chest radiograph reading, but mistakenly attributed this opacity to overlying soft tissues and the spine.
07/25/23 US limited Status post cholecystectomy. No evidence for biliary ductal dilation.
Hepatomegaly. Increased echogenicity of the liver, most suggestive of fatty infiltration. There are 2 benign simple cysts identified.
07/25/23 CT Chest/abd/pelvis Angio W/wo
Examination is negative for thoracic aortic dissection. Examination is negative for thoracic aortic aneurysm or abdominal aortic aneurysm.
Mild dilation of the common iliac arteries bilaterally which tracks diameter 16 mm.
No evidence for pulmonary embolism, as the pulmonary arteries are fairly well opacified.
Parenchymal airspace opacity and groundglass opacity involving the left lower lobe of the lung, which very likely represents pneumonia. There is a small left pleural effusion as well.
Moderate coronary artery calcifications are present. Please correlate with symptoms of and risk factors for coronary artery disease, with further workup as clinically appropriate.
Mild fatty infiltration of the liver. 2 hepatic cysts as described.
2.4 cm well-defined homogeneous density cyst arising within the left ovary. No further imaging follow-up is recommended.
Colonic diverticula with no CT evidence of diverticulitis. Evidence of right hemicolectomy with anastomosis in the right upper quadrant. No evidence for bowel obstruction or free intraperitoneal air.
Prior GI Procedures:
EGD: 10 years ago recalls as stable
Colonoscopy: + polyps with hx precancerous polyp with resection Dr. Kulkrani
Assessment / Plan
-
Pt is a 82yo with hx CAD prior stent(on Plavix), PAF with prior ablation on Eliquis, colon resection for precancerous polyps, HTN, hyperlipidemia, DM, YOSELIN, bipap, GERD, presents with onset of epigastric pain with nausea and vomiting. In reviewing
with patient she was in [facility] for last 2 months visiting family. 2 weeks after arrival she was hospitalized with shortness of breath and was noted with afib RVR. She was started on new Amiodarone and Digoxin. She retuned last week and now
with continued shortness of breath and epigastric/chest pain. She also associate symptoms with nausea and dry heaves and asked to evaluate. On admission noted with WBC 13,400 bili 3.2 with otherwise normal LFT's and lipase. There was also
concern for sepsis with PNA but asked to see for epigastric pain and possible UTI. Imaging on admission with limited US s/p soco, HM, fatty liver, 2 benign cysts. 07/25/23 CT Chest/abd/pelvis Angio neg dissection, mild dilation of common iliac
artery no PE Parenchymal airspace opacity and groundglass opacity involving the left lower lobe of the lung, which very likely represents pneumonia. There is a small left pleural effusion as well and again noted fatty liver, liver cysts, and 2.4 cm
density left ovary, diverticulosis and prior right hemicolectomy.
-epigastric/chest pain
-recurrent afib on admission on Eliquis
-recent start of Amiodarone and Digoxin in [facility] with recent afib noted during recent visit
-sepsis/fever 100.8 with PNA
-possible UTI
-elevated bilirubin
-CAD s/p stent on Plavix
-fatty liver/ liver cyst per imaging
other medical problems:
-GERD
-HTN
-hyperlipidemia
-sleep apnea
-DM type 2
-obesity
-chronic back pain with prior surgery
-hx bowel resection for precancerous polyp
-hx soco
PLAN:
etiology of shortness of breath with chest/epigastric pain related to underlying cardiac issues with recent afib, vs infectious etiology with low grade fever/leukocytosis-possible PNA/UTI, vs underlying GI issue vs other
await cardiac testing-- BNP and echo pending, dig level stable with newly added medication
imaging with US and CT angio noted
add D bili and repeat lipase
pt remains on Plavix and Eliquis
cont diet as tolerated
cont abx with fever and possible PNA
cont famotidine BID
-
-
Thank you for consultation and allowing me to participate in the patient's care. Please call the international exchange coordinator GI physician during the after hours with any questions or concerns.
[2023-07-26 11:23] LABS: Glucose - Point of Care 219 mg/dl (70-99)
[2023-07-26] MEDS: NOVOLOG FLEXPEN-LOW RESISTANCE SC ×3 (11:24→17:38)
[2023-07-26 11:30] LABS: Digoxin 0.7 ng/ml (0.8-2.0); Direct Bilirubin 0.7 mg/dl (0.0-0.4); Lipase 32 U/L (23-300)
--- NOTE | 2023-07-26 12:06 | CM ---
Patient seen bedside, initial assessment completed. Patient reports she lives independently in a split level home, 5 steps to enter. Patient denies DME, reports history of [facility] and [facility] Re[facility] after knee and shoulder surgery. Patient
currently on O2, denies home O2. Patient confirms PCP Christian Gandara, pharmacy [facility]. Patient confirms she has prescription coverage. CM will continue to follow for discharge planning needs.
Plan; home no needs vs VN needs.
[2023-07-26 12:18] LABS: Glycohemoglobin (HgbA1c) 7.7 % (4.0-5.6)
[2023-07-26 12:30] LABS: Glucose - Point of Care 215 mg/dl (70-99)
[2023-07-26 12:40] LABS: Troponin I 0.039 ng/ml
[2023-07-26 13:18] LABS: NT-proBNP 7690 pg/ml
--- NOTE | 2023-07-26 16:00 | W.PN.UPDATE ---
Update Note
Progress Note Update
billing purposes
[2023-07-26 16:07] LABS: Glucose - Point of Care 195 mg/dl (70-99)
--- NOTE | 2023-07-26 16:30 | CON.ID ---
Consultation
-
Date/Time Consultation Requested: 07/26/23 9:46
Date/Time Consultation Performed: 07/26/23 16:30
Requesting Provider: Dr Han
Performing Provider: Dr oTney
Reason for Consultation: possible sepsis pna started on Levaquin d/t allergies
Chief Complaint / Past History
Chief Complaint
abdominal pain
History of Present Illness
Ms Boo is an 82 year old female with history of CAD, Afib on eliquis, class II obesity who presented here yesterday for abrupt onset of epigastric abdominal pain and dry heaving. Additionally complained of a pulsatile feeling in that area. Pain
worse with movement, improved with lying still. No radiation to the back or flanks but did radiate to the chest. No dysuria but is reprorting urgency and frequency to me. No fevers, chills, dysphagia.
Of note recently visited son in [facility] for the last month. Had episodic chest pressure/shortness of breath and was seen by medical provider and given two medications.
Since arrival here her tmax is 100.8, bp stable, wbc 13.4 on arrival, hgb 10.7, plt 124, a left shift is noted and improving today, eos are not present, na on arrival 129 down from 130 5 months ago, cr 0.7, glucose 219, lactic acid 1.8, t bili 3.1,
d bili 0.7, ast 24, alt 15, alk phos 43, troponins neg x3, covid ag neg, 07/24 CTA c/a/p: no dissectio nor aneurysm, no PE, LLL possible pnuemonia and small effusion,
Past History
Additional Past Medical History:
atrial fibrillation on Eliquis, CAD status post stent, hypertension, hyperlipidemia, sleep apnea, diabetes, obesity, GERD
Additional Past Surgical History:
Appendectomy, cholecystectomy, colon resection for polyp, right hemicolectomy, orthopedic surgeries, carpal tunnel surgery, back surgery
Allergy History:
HEMALATHA Inhibitors Allergy (Verified 03/16/23 07:27)
cough
amoxicillin Allergy (Verified 03/16/23 07:27)
Rash
niacin Allergy (Verified 03/16/23 07:27)
flushing
oxaprozin Allergy (Verified 03/16/23 07:)
chemical induced hepatitis
pantoprazole [From Protonix] Allergy (Verified 03/16/23 07:)
rapid heart rate
vancomycin Allergy (Verified 03/16/23 07:)
back pain
Medications Reviewed: Yes
Social History
Tobacco: Non-Smoker
Alcohol: None
Drug: None
Review of Systems
Vital Signs
Temp Pulse Resp BP Pulse Ox
99.5 F 85 18 152/79 99
07/26/23 15:30 07/26/23 15:30 07/26/23 15:30 07/26/23 15:30 07/26/23 15:30
Physical Exam
Lab / Diagnostic Study Results
07/26/23 06:31
07/26/23 06:31
Abs Immat Gran (auto) 0.1 10^3/uL (0-0.05) H 07/26/23 06:31
Absolute Neuts (auto) 10.7 10^3/uL (1.4-6.5) H 07/26/23 06:31
Absolute Lymphs (auto) 1.3 10^3/uL (1.2-3.4) 07/26/23 06:31
Absolute Monos (auto) 1.5 10^3/uL (0.1-0.6) H 07/26/23 06:31
Absolute Basos (auto) 0.0 10^3/uL (0-0.2) 07/26/23 06:31
Immature Gran % 0.7 % (0-0.5) H 07/26/23 06:31
Neutrophils % 78.3 % (42.2-75.2) H 07/26/23 06:31
Lymphocytes % 9.5 % (20.5-51.1) L 07/26/23 06:31
Monocytes % 11.2 % (1.7-9.3) H 07/26/23 06:31
Eosinophils % 0.0 % (0-6) 07/26/23 06:31
Basophils % 0.3 % (0-2) 07/26/23 06:31
Lactic Acid 1.8 mmol/L (0.7-2.0) 07/26/23 09:37
Ur Squamous Epith Cells 3-5 /LPF (Few) 07/25/23 16:38
Microbiology Results
Micro:
07/25/23 16:38 Legionella Urinary Antigen - Final
Urine Negative for Legionella pneumophila Serogroup 1 antigen.
A negative result does not rule out the possiblity of
Legionella infection due to other serogroups or species of
Legionella. Clinical correlation is recommended.
Streptococcus pneumoniae Antigen (M - Final
Negative for Streptococcus pneumoniae antigen.
A negative result does not exclude infection with
Streptococcus pneumoniae. Clinical correlation is
recommended.
07/25/23 16:38 Urine Culture - Preliminary
Urine Escherichia coli
07/26/23 10:20 Blood Culture - Pending
Blood/Venous
07/26/23 09:36 Blood Culture - Pending
Blood/Venous
07/25/23 16:38 Influenza Types A & B (JOSÉ MIGUEL) - Final
Nasal Swab Negative for Influenza A & B, NAAT
Negative results must be combined with clinical observations
and patient history.
Nucleic Acid Amplification test (NAAT)performed on the
[employer] platform.
Assessment / Plan
Dense LLL Pneumonia
Fever - resolving
Recent long stay in [place]
Allergy to amoxicillin
- sputum culture if able to produce
- legionella and s pneumo urine ags were negative
- blood cultures x2 in progress
- qtc: 430
- pneumonia most likely cause of fevers, if not responsive to treatment will broaden workup - did not have travel
- of note [facility]
UTI
- is reporting urgency and frequency to me.
- 100K e coli on the culture
- levofloxacin as above
[2023-07-26] MEDS: TOPROL XL 75 MG PO (20:13)
[2023-07-26 21:17] LABS: Glucose - Point of Care 224 mg/dl (70-99)
[2023-07-27] VITALS (10 sets, daily range): BP systolic 106–165; BP diastolic 61–93; PULSE 2–84; O2SAT 93–94
[2023-07-27] MEDS: LEVAQUIN 150 IV (02:44)
[2023-07-27 07:05] LABS: Glucose - Point of Care 137 mg/dl (70-99)
[2023-07-27 08:13] LABS: Hemoglobin 10.4 g/dL (12.0-16.0); Mean Corp Hgb Conc. 34.7 g/dL (33.0-37.0); Mean Corpuscular Hgb 27.7 pg (27.0-31.0); Red Blood Cell Count 3.75 10^6/uL (4.20-5.40); Red Cell Dist. Width 14.3 % (11.5-14.5); White Blood Cell Count 9.3 10^3/uL (4.8-10.8)
--- NOTE | 2023-07-27 08:35 | W.PN.HOSP.TC ---
Today's Communication/Plan
-
Tylenol prn fever control
cont abx as per ID
PT/OT
glycemic control
rate rhythm control as per Cardio
Assessment / Plan
Assessment / Plan
Physical Exam
General: mild distress due to nausea vomiting. Morbid Obesity
HEENT: NormoCephalic, Moist mucous membranes and Atraumatic
Respiratory: Clear
Cardiac: Irregularly irregular mild tachy; No Murmur or Rub
GI: Soft, Non Distended, Normal Bowel Sounds, Nontender; No Organomegaly
Musculoskeletal: No Clubbing, No Cyanosis and No Edema
Skin: No Rash
Neuro: AOx3
82F afib CAD stent Feb 2023 Eliquis Plavix HTN HLD DM YOSELIN BIPAP bedtime Obesity GERD
# Epigastric abdominal pain spasm nausea vomiting resolved, unclear etiology, possibly d/t sepsis pna vs uti,
-Lipase unremarkable
-CTA chest/abdomen negative for dissection aneurysm or pulmonary embolism, notes mild fatty liver disease, left lower lobe lung pna with small left pleural effusion
-cont IV pepcid, allergic to protonix
-GI eval appreciated outpatient follow up with her GI doctor Dr Gramajo at [facility] recommended
# Symptomatic recurrence of atrial fibrillation
# Abnormal EKG with delta wave
-EKG showed atrial fibrillation, left anterior fascicular block, delta waves in lateral leads which appear new without any notable ST T wave changes
-Continue metoprolol
-Continue Eliquis
-Recently started on Amiodarone and Digoxin following hospitalization in [facility] last month while visiting son,
-digoxin level appreciated subtherapeutic
-Cardiology consult appreciated digoxin discontinued, cont amiodarone, BB increased for rate control, considering cardioversion after treatment for infection
-BNP 7690 possibly d/t sepsis as oppose to HF,
-ECHO appreciated EF 65-70% no significant valve abn's
#Possible Urinary tract infection
-Abdominal symptoms unlikely secondary to UTI
-Leukocytosis
-UA shows 30-40 WBC, positive nitrates, positive leukocyte esterase
-Urine culture appreciated E. coli resistant to fluoroquinolones
-ID eval appreciated Levaquin switched to ceftazidime
Possible Sepsis PNA (Leukocytosis, Tachycardia)
Acute Hypoxic Insufficiency/Failure (requiring 2L saturating 93%)
-Left Lower Lobe PNA as noted on CT
-COVID Flu neg
-strep legionella urine antigen neg
-Lacti Acid wnl
-ID eval appreciated empiric Levaquin switched to IV Ceftazidime
Coronary artery disease status post stent
-Continue Plavix
History of GERD
-cont Famotidine IV BID
Essential hypertension
-Continue losartan
Hyperlipidemia
-Continue statin
Obstructive sleep apnea
-Continue BiPAP at night
Type 2 diabetes
-Hold metformin
-Insulin sliding scale
Hypophosphatemia
-monitor and replete as necessary
Obesity
History of back surgery/chronic back pain
-Continue duloxetine
Full code
DVT prophylaxis-Eliquis
Regular diet
PT/OT eval appreciated HH
I spent a total of 60 minutes with the patient or on the floor. More than 50% of this time involved counseling and coordination of care.
Anticipated Discharge: > 48 hours
Subjective/Interval History
-
Date of Service: July 27, 2023
Continues to spike fever but reduced frequency severity. Reports shortness of breath palpitation. denies chest pain
Objective Data
-
Labs:
Laboratory Results
07/27/23
06:51
WBC 9.3
Hgb 10.4 L
Hct 30.0 L
Plt Count Pending
Sodium Pending
Potassium Pending
Chloride Pending
Carbon Dioxide Pending
BUN Pending
Creatinine Pending
Glucose Pending
Calcium Pending
Vital Signs:
Vital Signs
Temp Pulse Resp BP Pulse Ox
98.4 F 91 18 132/61 93
07/27/23 07:30 07/27/23 07:30 07/27/23 07:30 07/27/23 07:30 07/27/23 07:30
I&O
07/26/23 07/27/23 07/28/23
06:59 06:59 06:59
Intake Total 420 / 420 570 / 570
Output Total 350 / 350
Balance 70 / 70 570 / 570
[2023-07-27 09:04] LABS: Blood Urea Nitrogen 12 mg/dl (7-17); Calcium 8.6 mg/dl (8.4-10.2); Carbon Dioxide 21 mmol/L (22-30); Chloride 96 mmol/L (98-107); Estimated Creatinine Clearance 76 ml/min; Glucose 120 mg/dl (70-99); Magnesium 1.7 mg/dl (1.6-2.3); Phosphorus 2.2 mg/dl (2.5-4.5); Sodium 132 mmol/L (135-145); eGFR > 60.00
[2023-07-27] MEDS: NOVOLOG FLEXPEN-LOW RESISTANCE SC (09:10)
[2023-07-27] MEDS: CYMBALTA DELAYED RELEASE 60 MG PO (09:18)
[2023-07-27] MEDS: TOPROL XL 75 MG PO ×2 (09:18→21:19)
[2023-07-27] MEDS: PLAVIX 75 MG PO (09:19)
[2023-07-27] MEDS: ELIQUIS 5 MG PO ×2 (09:19→21:19)
[2023-07-27] MEDS: PEPCID 20 MG IV ×2 (09:19→21:21)
[2023-07-27] MEDS: NSS (PRESERVATIVE FREE) 8 ML IV ×2 (09:20→21:20)
[2023-07-27 09:30] LABS: Platelet Count 144 10^3/uL (130-400)
[2023-07-27 09:31] LABS: Mean Platelet Volume 10.6 fL (7.4-10.4)
[2023-07-27] MEDS: TYLENOL 650 MG PO (09:50)
--- NOTE | 2023-07-27 10:27 | W.PN.UPDATE ---
Update Note
Progress Note Update
Urine Cx appreciated E. coli resistant to Fluoroquinolones
Levofloxacin discontinued in favor of Cefipime
home Amiodarone resumed, no significant QT prolongation recent EKG
--- NOTE | 2023-07-27 11:09 | W.PN.GI.CBS2 ---
Addendum entered and electronically signed by Doug Rodriguez MD 07/27/23 18:00:
I saw and examined the patient.
The CURTAIN STRETCHER ASSEMBLER or PA's note was reviewed and I agree with the note.
Comment: 82 yo F pmh CAD on plavix, pAF on Eliquis, colon resection for colon polyps p/w epigastric pain, n/v few days. N/v worse with movement. Epigastric pain no aggrevating/allevating factors. No sick contacts but recent travel to [facility].
Has leukocytosis and fever to 100.5 max.
US/CT with fatty liver and likely PNA and now UTI.
GI symptoms improving. May be related to UTI.
GI will sign off please call with ?s.
Follow up [facility] Dr. Gramajo outpatient for fatty liver.
Original Note:
Today's Communication / Plan
-
etiology of shortness of breath with chest/epigastric pain related to underlying cardiac issues with recent afib, vs infectious etiology with low grade fever/leukocytosis PNA/UTI, vs underlying GI issue vs other
echo stable no change ER 65-70% no valve disease
epigastric pain some improvement
add repeat LFT's for am
pt remains on Plavix and Eliquis
cont diet as tolerated
now with some diarrhea -- monitor with change on abx with now noted ecoli UTI, blood cx neg so far
cont famotidine BID
if any further diarrhea check stool studies
Dr. Gramajo follow up after discharge
pt also admits to some stress -- sister yesterday and daughter with metastatic breast CA due for follow up PET scan this week
Assessment / Plan
-
Pt is a 82yo with hx CAD prior stent(on Plavix), PAF with prior ablation on Eliquis, colon resection for precancerous polyps, HTN, hyperlipidemia, DM, YOSELIN, bipap, GERD, presents with onset of epigastric pain with nausea and vomiting. In reviewing
with patient she was in [facility] for last 2 months visiting family. 2 weeks after arrival she was hospitalized with shortness of breath and was noted with afib RVR. She was started on new Amiodarone and Digoxin. She retuned last week and now
with continued shortness of breath and epigastric/chest pain. She also associate symptoms with nausea and dry heaves and asked to evaluate. On admission noted with WBC 13,400 bili 3.2 with otherwise normal LFT's and lipase. There was also
concern for sepsis with PNA but asked to see for epigastric pain and possible UTI. Imaging on admission with limited US s/p soco, HM, fatty liver, 2 benign cysts. 07/25/23 CT Chest/abd/pelvis Angio neg dissection, mild dilation of common iliac
artery no PE Parenchymal airspace opacity and groundglass opacity involving the left lower lobe of the lung, which very likely represents pneumonia. There is a small left pleural effusion as well and again noted fatty liver, liver cysts, and 2.4 cm
density left ovary, diverticulosis and prior right hemicolectomy.
-epigastric/chest pain
-diarrhea
-recurrent afib on admission on [facility]
-recent start of Amiodarone and Digoxin in [facility] with recent afib noted during recent visit
-sepsis/fever 100.8 with PNA/UTI
-Ecoli UTI
-CAD s/p stent on Plavix
-fatty liver/ liver cyst per imaging
-elevated bili with mild d bili elevation
other medical problems:
-GERD
-HTN
-hyperlipidemia
-sleep apnea
-DM type 2
-obesity
-chronic back pain with prior surgery
-hx bowel resection for precancerous polyp
-hx soco
PLAN:
etiology of shortness of breath with chest/epigastric pain related to underlying cardiac issues with recent afib, vs infectious etiology with low grade fever/leukocytosis PNA/UTI, vs underlying GI issue vs other
echo stable no change ER 65-70% no valve disease
epigastric pain some improvement
add repeat LFT's for am
pt remains on Plavix and Eliquis
cont diet as tolerated
now with some diarrhea -- monitor with change on abx with now noted ecoli UTI, blood cx neg so far
cont famotidine BID
if any further diarrhea check stool studies
Dr. Gramajo follow up after discharge
pt also admits to some stress -- sister yesterday and daughter with metastatic breast CA due for follow up PET scan this week
Subjective
Subjective
Date of Service: July 27, 2023
still with some fever, epigastric pain some improvement but now diarrhea
Objective
Data Reviewed
Laboratory Data:
Laboratory Results
07/27/23 06:51
07/27/23 06:51
Laboratory Results
Phosphorus 2.2 mg/dl (2.5-4.5) L 07/27/23 06:51
Magnesium 1.7 mg/dl (1.6-2.3) 07/27/23 06:51
Total Bilirubin 3.1 mg/dl (0.2-1.3) H 07/26/23 06:31
AST 24 U/L (14-36) 07/26/23 06:31
ALT 15 U/L (0-35) 07/26/23 06:31
Alkaline Phosphatase 43 U/L (38-126) 07/26/23 06:31
Lipase 32 U/L (23-300) 07/26/23 06:31
Vital Signs and I&O:
Vital Signs
Temp Pulse Resp BP Pulse Ox
100.8 F H 91 18 132/61 93
07/27/23 09:50 07/27/23 07:30 07/27/23 07:30 07/27/23 07:30 07/27/23 07:30
I&O
07/26/23 07/27/23 07/28/23
06:59 06:59 06:59
Intake Total 420 / 420 570 / 570
Output Total 350 / 350
Balance 70 / 70 570 / 570
Physical Exam
Physical Exam
HEENT: Anicteric and Moist mucous membranes
Cardiology: Normal Sinus Rhythm
Pulmonary: Clear
GI: Soft, Non Distended and Tender (mild epigastric pain)
Extremities: No Edema
Neuro: Non Focal
--- NOTE | 2023-07-27 11:42 | W.PN.ID1 ---
Date of Service
Date of Service: July 27, 2023
Today's Communication
switch to ceftaz
Assessment / Plan
Dense LLL Pneumonia
Fever - persistent
Recent long stay in [place]
Allergy to amoxicillin
- sputum culture if able to produce - acapella ordered
- blood cultures x2 in progress
- qtc: 430
- switched to ceftazidime as restarted on amiodarone; given long stay in [facility] favor regimens with burkholderia coverage
- pneumonia most likely cause of fevers, if not responsive to treatment will broaden workup - did not have travel vaccines or counseling
- of note malaria not reported in [facility]
UTI
- is reporting urgency and frequency to me.
- 100K e coli on the culture - ceftazidime as above
- levofloxacin as above
Chief Complaint
-: Fever
Subjective / Review of Systems
fevers ongoing
bp stable
without leukocytosis
cr stable
blood cultures x2 no growth
urine culture 100 K E coli - quinolone resistant
Vital Signs / Physical Exam
Vital Signs
Vital Signs
Temp Pulse Resp BP Pulse Ox
100.8 F H 91 18 132/61 93
07/27/23 09:50 07/27/23 07:30 07/27/23 07:30 07/27/23 07:30 07/27/23 07:30
Physical Exam
Constitutional: No Acute Distress and Chronically Ill
Cardiovascular: Regular Rate and S1/S2; Negative Murmur or Rub
Pulmonary: Clear and Symmetric; Negative Wheezes or Rales
Gastrointestinal: Soft, Non Tender, Non Distended and Normal Bowel Sounds
Skin: Warm and Dry; Negative Rash or Jaundice
Objective Data
Lab Data
Lab Results
07/27/23 06:51
07/27/23 06:51
Estimated Creat Clear 76 ml/min 07/27/23 06:51
Lactic Acid 1.8 mmol/L (0.7-2.0) 07/26/23 09:37
Total Bilirubin 3.1 mg/dl (0.2-1.3) H 07/26/23 06:31
AST 24 U/L (14-36) 07/26/23 06:31
ALT 15 U/L (0-35) 07/26/23 06:31
Alkaline Phosphatase 43 U/L (38-126) 07/26/23 06:31
Most recent labs reviewed.
Micro Results:
07/26/23 10:20 Blood Culture - Preliminary
Blood/Venous No Growth in 24 hours- Final report to follow
07/26/23 09:36 Blood Culture - Preliminary
Blood/Venous No Growth in 24 hours- Final report to follow
07/25/23 16:38 Urine Culture - Final
Urine Escherichia coli
07/25/23 16:38 Legionella Urinary Antigen - Final
Urine Negative for Legionella pneumophila Serogroup 1 antigen.
A negative result does not rule out the possiblity of
Legionella infection due to other serogroups or species of
Legionella. Clinical correlation is recommended.
Streptococcus pneumoniae Antigen (M - Final
Negative for Streptococcus pneumoniae antigen.
A negative result does not exclude infection with
Streptococcus pneumoniae. Clinical correlation is
recommended.
07/25/23 16:38 Influenza Types A & B (JOSÉ MIGUEL) - Final
Nasal Swab Negative for Influenza A & B, NAAT
Negative results must be combined with clinical observations
and patient history.
Nucleic Acid Amplification test (NAAT)performed on the
[employer] platform.
--- NOTE | 2023-07-27 12:15 | PTCARENOTE ---
12:00 Noted MD orders to give Magnesium sulfate IV misa and Sodium phosphate IV misa, meds not compatible. Noted pt has one IV line, pt express concern is a difficult IV stick. Spoke to DR. Han and recommended to give Sodium Phosphate IV misa
first and then give Magnesium sulfate IV misa after. Notified pharmacy, explain to pt.
[2023-07-27] MEDS: SODIUM PHOSPHATE 255 MEQ IV (12:17)
[2023-07-27 12:22] LABS: Glucose - Point of Care 201 mg/dl (70-99)
[2023-07-27] MEDS: FORTAZ 2000 MG IV ×2 (13:09→21:20)
[2023-07-27] MEDS: PACERONE 200 MG PO (13:10)
[2023-07-27] MEDS: NOVOLOG FLEXPEN-LOW RESISTANCE 2 UNITS SC (13:10)
[2023-07-27] MEDS: STERILE WATER FOR INJECTION 10 ML IV ×2 (13:11→21:21)
[2023-07-27] MEDS: ZOFRAN 4 MG IV (13:28)
--- NOTE | 2023-07-27 13:39 | W.PN.CARDCBS ---
Addendum entered and electronically signed by Micha Stovall MD 07/27/23 17:48:
I saw and examined the patient.
The Pet Caretaker's note was reviewed and I agree with the note.
Comment: Briefly, 82-year-old woman PMHx atrial fibrillation and CAD with recent PCI who presented with sepsis secondary to pneumonia
Remains in AFib with rates being rapid at times
Cont metoprolol and amio for rate control of AFib, goal HR <110 bpm
Eliquis for cardioembolic ppx
Consider eventual DCCV after treatment of infx
Cont Plavix and statin given recent PCI
Original Note:
Today's Communication / Plan
-
continue amiodarone, toprol, plavix, eliquis
HRs controlled in afib
continue treatment of PNA/UTI
Impression / Plan
-
Primary Front Counter Attendant: Dr. Gupta
Assessment:
Presentation with dry heaving, epigastric pain
Fever
L PNA by chest CT
Acute hypoxic respiratory insufficiency
Abnormal UA/E.coli UTI
Paroxysmal atrial fibrillation
Chronic anticoagulation with Eliquis
History of PVI 02/2022
Recent hospitalization in [facility] 06/2023 for afib, spontaneously converted, started on amio and digoxin
CAD status post LAD PCI 02/2023
PAT
Hypertension
HLD
Diabetes
Sleep apnea with CPAP
Obesity
History of cervical spinal fusion 04/2021
History of R hemicolectomy
Fatty liver
Hepatic cysts by CT C/A/P
L ovarian cyst
Hyponatremia
Fall 07/25/23
ECHO 02/2022: EF 55-60%, small pericardial effusion without hemodynamic compromise
Cath 03/16/23:
1. Successful stenting of the mid to distal LAD with a 2.25 x 15 mm Xience stent that was implanted at nominal pressures then postdilated with a 2.25 mm noncompliant balloon to 16 carola with a nice angiographic result
2. Preserved left ventricular systolic function
ECHO 07/26/23: EF 65-70%, mild cLVH, no significant valvular disease
Plan:
-Patient presents with dry heaving, epigastric pain and fever. recent travel to [facility]
-blood cultures negative thus far. continue treatment of PNA/UTI per primary service/ID
-now on RA
-on review of tele overnight, HRs appear controlled in afib. toprol dose was increased 07/25 to 75mg BID. OP digoxin was discontinued. of note, dig level was 0.7.
-continue po amiodarone 200mg daily. QTc stable by EKG 07/25
-Continue Eliquis. She reports no missed outpatient doses
-proBNP 7690. follow volume status. consider for dose of lasix
-echo with results as above
-Continue Plavix in addition to anticoagulation in the setting of LAD stent 02/2023. No chest pain. Troponins 0.034 and trending down. EKG appears similar to prior, will follow
-may require eventual CV
Progress Note - Front Counter Attendant
Subjective
Date of Service: July 27, 2023
no issues overnight noted.
Objective
Labs:
07/27/23 06:51
07/27/23 06:51
Labs
Hgb 10.4 g/dL (12.0-16.0) L 07/27/23 06:51
Hct 30.0 % (37.0-47.0) L 07/27/23 06:51
Plt Count 144 10^3/uL (130-400) 07/27/23 06:51
Sodium 132 mmol/L (135-145) L 07/27/23 06:51
Potassium 4.0 mmol/L (3.5-5.1) 07/27/23 06:51
BUN 12 mg/dl (7-17) 07/27/23 06:51
Creatinine 0.7 mg/dL (0.6-1.0) 07/27/23 06:51
Glucose 120 mg/dl (70-99) H 07/27/23 06:51
Digoxin Cancelled 07/26/23 10:22
Troponins
07/25/23 07/25/23 07/26/23
12:21 16:38 09:36
Troponin I 0.034 0.030 0.039 H*
Vital Signs and I&O:
Vital Signs
Temp Pulse Resp BP Pulse Ox
100.2 F 96 17 123/65 94
07/27/23 11:15 07/27/23 11:15 07/27/23 11:15 07/27/23 11:15 07/27/23 11:15
Vital Signs
Temp Pulse Resp BP Pulse Ox
100.2 F 96 17 123/65 94
07/27/23 11:15 07/27/23 11:15 07/27/23 11:15 07/27/23 11:15 07/27/23 11:15
Intake & Output
07/25/23 07/26/23 07/27/23 07/28/23
07:59 07:59 07:59 07:59
Intake Total 420 / 420 570 / 570
Output Total 350 / 350
Balance 70 / 70 570 / 570
--- NOTE | 2023-07-27 15:06 | CM ---
Patient seen bedside. CM discussed PT recommendation of home health, patient declines at this time. CM will continue to follow for discharge planning need, will continue to offer VN services.
Plan; home no needs, declining VN at this time.
[2023-07-27] MEDS: MAGNESIUM SULFATE 50 IV (17:08)
[2023-07-27 17:13] LABS: Glucose - Point of Care 188 mg/dl (70-99)
[2023-07-27] MEDS: NOVOLOG FLEXPEN-LOW RESISTANCE 1 UNITS SC (17:17)
--- NOTE | 2023-07-27 18:00 | W.PN.UPDATE ---
Update Note
Progress Note Update
billing purposes
[2023-07-27] MEDS: LIPITOR 80 MG PO (21:19)
[2023-07-27 21:33] LABS: Glucose - Point of Care 195 mg/dl (70-99)
[2023-07-28] VITALS (8 sets, daily range): BP systolic 105–143; BP diastolic 68–78; PULSE 2–88
[2023-07-28] MEDS: FORTAZ 2000 MG IV ×2 (04:31→13:08)
[2023-07-28] MEDS: STERILE WATER FOR INJECTION 10 ML IV ×2 (04:31→13:08)
[2023-07-28 05:50] LABS: Hematocrit 28.7 % (37.0-47.0); Hemoglobin 9.6 g/dL (12.0-16.0); Mean Corp Hgb Conc. 33.4 g/dL (33.0-37.0); Mean Corpuscular Hgb 27.7 pg (27.0-31.0); Mean Corpuscular Volume 82.9 fL (81.0-99.0); Mean Platelet Volume 10.1 fL (7.4-10.4); Platelet Count 178 10^3/uL (130-400); Red Blood Cell Count 3.46 10^6/uL (4.20-5.40); Red Cell Dist. Width 14.4 % (11.5-14.5); White Blood Cell Count 8.9 10^3/uL (4.8-10.8)
[2023-07-28 06:18] LABS: ALT (SGPT) 33 U/L (0-35); AST (SGOT) 48 U/L (14-36); Alkaline Phosphatase 60 U/L (38-126); Blood Urea Nitrogen 11 mg/dl (7-17); Calcium 8.3 mg/dl (8.4-10.2); Carbon Dioxide 30 mmol/L (22-30); Chloride 93 mmol/L (98-107); Direct Bilirubin 0.7 mg/dl (0.0-0.4); Estimated Creatinine Clearance 76 ml/min; Glucose 144 mg/dl (70-99); Magnesium 2.1 mg/dl (1.6-2.3); Phosphorus 2.8 mg/dl (2.5-4.5); Potassium 4.1 mmol/L (3.5-5.1); Sodium 130 mmol/L (135-145); Total Protein 5.7 g/dl (6.3-8.2); Troponin I 0.084 ng/ml; eGFR > 60.00
--- NOTE | 2023-07-28 07:07 | W.PN.HOSP.TC ---
Today's Communication/Plan
-
cont abx as per ID
PT/OT
glycemic control
rate rhythm control as per Cardio
Assessment / Plan
Assessment / Plan
Physical Exam
General: mild distress due to nausea vomiting. Morbid Obesity
HEENT: NormoCephalic, Moist mucous membranes and Atraumatic
Respiratory: Clear
Cardiac: Irregularly irregular mild tachy; No Murmur or Rub
GI: Soft, Non Distended, Normal Bowel Sounds, Nontender; No Organomegaly
Musculoskeletal: No Clubbing, No Cyanosis and No Edema
Skin: No Rash
Neuro: AOx3
82F afib CAD stent Feb 2023 Eliquis Plavix HTN HLD DM YOSELIN BIPAP bedtime Obesity GERD
# Epigastric abdominal pain spasm nausea vomiting resolved, unclear etiology, possibly d/t sepsis pna vs uti,
-Lipase unremarkable
-CTA chest/abdomen negative for dissection aneurysm or pulmonary embolism, notes mild fatty liver disease, left lower lobe lung pna with small left pleural effusion
-cont IV pepcid, allergic to protonix
-GI eval appreciated outpatient follow up with her GI doctor Dr Gramajo at [facility] recommended
# Symptomatic recurrence of atrial fibrillation
# Abnormal EKG with delta wave
-EKG showed atrial fibrillation, left anterior fascicular block, delta waves in lateral leads which appear new without any notable ST T wave changes
-Continue metoprolol
-Continue Eliquis
-Recently started on Amiodarone and Digoxin following hospitalization in [facility] last month while visiting son,
-digoxin level appreciated subtherapeutic
-Cardiology consult appreciated digoxin discontinued, cont amiodarone, BB increased for rate control, heart rate since improved, outpt follow up for possible cardioversion
-BNP 7690 possibly d/t sepsis as oppose to HF,
-ECHO appreciated EF 65-70% no significant valve abn's
#Possible Urinary tract infection
-Leukocytosis
-UA suggestive UTI
-Urine culture appreciated E. coli resistant to fluoroquinolones
-ID eval appreciated Levaquin switched to ceftazidime, clinically improved fever resolved, IV abx de-escalated to cefdinir doxycycline to continue through 07/30 (total 7 days abx)
Sepsis PNA (Leukocytosis, Tachycardia)
Acute Hypoxic Insufficiency/Failure (requiring 2L saturating 93%)
-Left Lower Lobe PNA as noted on CT
-COVID Flu neg
-strep legionella urine antigen neg
-Lacti Acid wnl
-ID eval appreciated abx continued as above
-weaned off oxygen supplementation
Non-ischemic troponin elevation 2/2 sepsis afib rvr
-chest pain free
-trended to peak 0.084 since trended down
Coronary artery disease status post stent
-Continue Plavix
History of GERD
-cont Famotidine IV BID
Essential hypertension
-Continue losartan
Hyperlipidemia
-Continue statin
Obstructive sleep apnea
-Continue BiPAP at night
Type 2 diabetes
-Hold metformin
-Insulin sliding scale
Hypophosphatemia
-monitor and replete as necessary
Obesity
History of back surgery/chronic back pain
-Continue duloxetine
Full code
DVT prophylaxis-Eliquis
Regular diet
PT/OT eval appreciated HH
I spent a total of 55 minutes with the patient or on the floor. More than 50% of this time involved counseling and coordination of care.
Anticipated Discharge: Today
Subjective/Interval History
-
Date of Service: July 28, 2023
No acute distress appears comfortable. Patient reports significant improvement in overall symptoms. Weaned off oxygen supplementation. Fever resolved 24 hours.
Objective Data
-
Labs:
Laboratory Results
07/28/23
05:38
WBC 8.9
Hgb 9.6 L
Hct 28.7 L
Plt Count 178 D
Sodium 130 L
Potassium 4.1
Chloride 93 L
Carbon Dioxide 30
BUN 11
Creatinine 0.7
Glucose 144 H
Calcium 8.3 L
Total Bilirubin 2.0 H D
AST 48 H
ALT 33
Alkaline Phosphatase 60
Vital Signs:
Vital Signs
Temp Pulse Resp BP Pulse Ox
98.5 F 85 20 139/78 93
07/28/23 03:59 07/28/23 03:59 07/28/23 03:59 07/28/23 03:59 07/28/23 03:59
I&O
07/27/23 07/28/23 07/29/23
06:59 06:59 06:59
Intake Total 570 / 570 540 / 540
Balance 570 / 570 540 / 540
[2023-07-28 07:29] LABS: Glucose - Point of Care 150 mg/dl (70-99)
[2023-07-28] MEDS: NOVOLOG FLEXPEN-LOW RESISTANCE 1 UNITS SC ×2 (09:31→19:17)
[2023-07-28] MEDS: PLAVIX 75 MG PO (09:33)
[2023-07-28] MEDS: CYMBALTA DELAYED RELEASE 60 MG PO (09:34)
[2023-07-28] MEDS: PACERONE 200 MG PO (09:34)
[2023-07-28] MEDS: TOPROL XL 75 MG PO ×2 (09:34→21:12)
[2023-07-28] MEDS: NSS (PRESERVATIVE FREE) 8 ML IV ×2 (09:37→21:12)
[2023-07-28] MEDS: ELIQUIS 5 MG PO ×2 (09:37→21:10)
[2023-07-28] MEDS: PEPCID 20 MG IV ×2 (09:38→21:13)
[2023-07-28 12:59] LABS: Glucose - Point of Care 218 mg/dl (70-99)
[2023-07-28] MEDS: NOVOLOG FLEXPEN-LOW RESISTANCE 2 UNITS SC (13:07)
[2023-07-28 15:25] LABS: Troponin I 0.045 ng/ml
--- NOTE | 2023-07-28 15:45 | W.PN.CARDCBS ---
Addendum entered and electronically signed by Micha Stovall MD 07/28/23 16:38:
I saw and examined the patient.
The Canal Tender's note was reviewed and I agree with the note.
Comment: Briefly, 82-year-old woman presenting with sepsis secondary to pneumonia and UTI
She has a past medical history of paroxysmal atrial fibrillation and has been in rate controlled atrial fibrillation throughout the hospitalization
Continues on amiodarone and Toprol for rate control
Continue Eliquis for cardioembolic prophylaxis
If she remains in atrial fibrillation as an outpatient we can consider cardioversion at that time
Known CAD with recent PCI, would continue Plavix and high intensity statin
Stable cardiac status
We will sign off
Outpatient follow-up has been arranged
Original Note:
Today's Communication / Plan
-
rate controlled in afib. continue toprol, amiodarone, eliquis
can readdress CV as OP
OP cardiac follow up arranged
Impression / Plan
-
Primary Hand Sizer: Dr. Gupta
Assessment:
Presentation with dry heaving, epigastric pain
Fever
L PNA by chest CT
Acute hypoxic respiratory insufficiency
Abnormal UA/E.coli UTI
Paroxysmal atrial fibrillation
Chronic anticoagulation with Eliquis
History of PVI 02/2022
Recent hospitalization in [facility] 06/2023 for afib, spontaneously converted, started on amio and digoxin
CAD status post LAD PCI 02/2023
PAT
Hypertension
HLD
Diabetes
Sleep apnea with CPAP
Obesity
History of cervical spinal fusion 04/2021
History of R hemicolectomy
Fatty liver
Hepatic cysts by CT C/A/P
L ovarian cyst
Hyponatremia
Fall 07/25/23
ECHO 02/2022: EF 55-60%, small pericardial effusion without hemodynamic compromise
Cath 03/16/23:
1. Successful stenting of the mid to distal LAD with a 2.25 x 15 mm Xience stent that was implanted at nominal pressures then postdilated with a 2.25 mm noncompliant balloon to 16 carola with a nice angiographic result
2. Preserved left ventricular systolic function
ECHO 07/26/23: EF 65-70%, mild cLVH, no significant valvular disease
Plan:
-She reports feeling improved from a pneumonia/UTI standpoint. Continue antibiotics per primary service. she is hoping for DC tomorrow
-Remains in rate controlled A-fib on review of telemetry. Continue Toprol at increased dose of 75 mg twice daily. Outpatient digoxin which was started during hospitalization in [facility] 06/2023, was discontinued this admission. continue amiodarone
200mg daily
-Continue Eliquis. She reports no missed outpatient doses
-proBNP 7690. lying flat. does not appear grossly volume overloaded
-echo with results as above
-Continue Plavix in addition to anticoagulation in the setting of LAD stent 02/2023. No chest pain. Troponins 0.034 and trending down. EKG appears similar to prior, will follow
-discussed option of CV. she reports prior failed CV x3 shocks. will continue rate control for now and reassess rhythm in office 08/02/23. can discuss CV further at that time if remains in afib
-d/w nursing
Progress Note - Hand Sizer
Subjective
Date of Service: July 28, 2023
reports improvement in breathing since admission. no palpitations
Objective
Labs:
07/28/23 05:38
07/28/23 05:38
Labs
Hgb 9.6 g/dL (12.0-16.0) L 07/28/23 05:38
Hct 28.7 % (37.0-47.0) L 07/28/23 05:38
Plt Count 178 10^3/uL (130-400) D 07/28/23 05:38
Sodium 130 mmol/L (135-145) L 07/28/23 05:38
Potassium 4.1 mmol/L (3.5-5.1) 07/28/23 05:38
BUN 11 mg/dl (7-17) 07/28/23 05:38
Creatinine 0.7 mg/dL (0.6-1.0) 07/28/23 05:38
Glucose 144 mg/dl (70-99) H 07/28/23 05:38
Digoxin Cancelled 07/26/23 10:22
Troponins
07/25/23 07/26/23 07/28/23
16:38 09:36 05:38
Troponin I 0.030 0.039 H* 0.084 H*
07/28/23
14:33
Troponin I 0.045 H*
Vital Signs and I&O:
Vital Signs
Temp Pulse Resp BP Pulse Ox
98.8 F 84 20 137/74 95
07/28/23 15:00 07/28/23 15:00 07/28/23 15:00 07/28/23 15:00 07/28/23 15:00
Vital Signs
Temp Pulse Resp BP Pulse Ox
98.8 F 84 20 137/74 95
07/28/23 15:00 07/28/23 15:00 07/28/23 15:00 07/28/23 15:00 07/28/23 15:00
Intake & Output
07/26/23 07/27/23 07/28/23 07/29/23
07:59 07:59 07:59 07:59
Intake Total 420 / 420 570 / 570 540 / 540
Output Total 350 / 350
Balance 70 / 70 570 / 570 540 / 540
Physical Exam
Physical Exam
GEN: No distress, awake, alert, oriented x3. obese
HEENT: supple, anicteric, mmm, eomi
LUNGS: CTA B/L, no wheezes/rales
CV: Irreg, S1/S2, no murmur
ABD: soft, BS+, NT/ND
EXT: No cyanosis, clubbing, edema
NEURO: Gross non-focal
SKIN: Warm, pink, dry. No rash
--- NOTE | 2023-07-28 17:27 | W.PN.ID1 ---
Date of Service
Date of Service: July 28, 2023
Today's Communication
- switch to cefdinir/doxycycline through 07/30
- CXR in 6 weeks outpatient and follow up in my office
Assessment / Plan
Dense LLL Pneumonia
Fever - persistent
Recent long stay in [place]
Allergy to amoxicillin
- unable to produce a sputum
- blood cultures x2 in progress, no growth to date
- switch to cefdinir/doxycycline to complete 7 days, through 07/30
- CXR in 6 weeks outpatient and follow up in my office
UTI
- cefdinir - as above
Chief Complaint
-: Fever
Subjective / Review of Systems
afebrile
bp stable
without leukocytosis
cr stable
blood cultures no growth
'I feel a lot better!'
Vital Signs / Physical Exam
Vital Signs
Vital Signs
Temp Pulse Resp BP Pulse Ox
98.8 F 84 20 137/74 95
07/28/23 15:00 07/28/23 15:00 07/28/23 15:00 07/28/23 15:00 07/28/23 15:00
Physical Exam
Constitutional: No Acute Distress
Cardiovascular: Regular Rate and S1/S2; Negative Murmur or Rub
Pulmonary: Clear and Symmetric; Negative Wheezes or Rales
Gastrointestinal: Soft, Non Tender, Non Distended and Normal Bowel Sounds
Genito-Urinary: Negative Suprapubic Tenderness
Skin: Warm and Dry; Negative Rash or Jaundice
Objective Data
Lab Data
Lab Results
07/28/23 05:38
07/28/23 05:38
Estimated Creat Clear 76 ml/min 07/28/23 05:38
Lactic Acid 1.8 mmol/L (0.7-2.0) 07/26/23 09:37
Total Bilirubin 2.0 mg/dl (0.2-1.3) H D 07/28/23 05:38
AST 48 U/L (14-36) H 07/28/23 05:38
ALT 33 U/L (0-35) 07/28/23 05:38
Alkaline Phosphatase 60 U/L (38-126) 07/28/23 05:38
Most recent labs reviewed.
Micro Results:
07/26/23 10:20 Blood Culture - Preliminary
Blood/Venous No Growth in 48 hours- Final report to follow
07/26/23 09:36 Blood Culture - Preliminary
Blood/Venous No Growth in 48 hours- Final report to follow
07/25/23 16:38 Urine Culture - Final
Urine Escherichia coli
07/25/23 16:38 Legionella Urinary Antigen - Final
Urine Negative for Legionella pneumophila Serogroup 1 antigen.
A negative result does not rule out the possiblity of
Legionella infection due to other serogroups or species of
Legionella. Clinical correlation is recommended.
Streptococcus pneumoniae Antigen (M - Final
Negative for Streptococcus pneumoniae antigen.
A negative result does not exclude infection with
Streptococcus pneumoniae. Clinical correlation is
recommended.
07/25/23 16:38 Influenza Types A & B (JOSÉ MIGUEL) - Final
Nasal Swab Negative for Influenza A & B, NAAT
Negative results must be combined with clinical observations
and patient history.
Nucleic Acid Amplification test (NAAT)performed on the
[employer] platform.
[2023-07-28 17:53] LABS: Glucose - Point of Care 175 mg/dl (70-99)
--- NOTE | 2023-07-28 18:00 | PTCARENOTE ---
1800 Discuss with cardiology and recommended to keep pt on telemetry for further monitoring of heart rate and heart rhythm, continue to monitor pt closely.
[2023-07-28] MEDS: VIBRAMYCIN 100 MG PO (21:11)
[2023-07-28] MEDS: OMNICEF 300 MG PO (21:12)
[2023-07-28] MEDS: LIPITOR 80 MG PO (21:12)
[2023-07-28 21:40] LABS: Glucose - Point of Care 241 mg/dl (70-99)
[2023-07-29 03:00] VITALS: BP 114/58
--- NOTE | 2023-07-29 07:08 | W.PN.HOSP.TC ---
Today's Communication/Plan
-
discharge
Assessment / Plan
Assessment / Plan
Physical Exam
General: No acute distress. Appears Comfortable. Morbid Obesity
HEENT: NormoCephalic, Moist mucous membranes and Atraumatic
Respiratory: Clear
Cardiac: Irregularly irregular non tachy; No Murmur or Rub
GI: Soft, Non Distended, Normal Bowel Sounds, Nontender; No Organomegaly
Musculoskeletal: No Clubbing, No Cyanosis and No Edema
Skin: No Rash
Neuro: AOx3
82F afib CAD stent Feb 2023 Eliquis Plavix HTN HLD DM YOSELIN BIPAP bedtime Obesity GERD
# Epigastric abdominal pain spasm nausea vomiting resolved, unclear etiology, possibly d/t sepsis pna vs uti,
-Lipase unremarkable
-CTA chest/abdomen negative for dissection aneurysm or pulmonary embolism, notes mild fatty liver disease, left lower lobe lung pna with small left pleural effusion
-cont IV pepcid, allergic to protonix
-GI eval appreciated outpatient follow up with her GI doctor Dr Gramajo at [facility] recommended
# Symptomatic recurrence of atrial fibrillation
# Abnormal EKG with delta wave
-EKG showed atrial fibrillation, left anterior fascicular block, delta waves in lateral leads which appear new without any notable ST T wave changes
-Continue metoprolol
-Continue Eliquis
-Recently started on Amiodarone and Digoxin following hospitalization in [facility] last month while visiting son,
-digoxin level appreciated subtherapeutic
-Cardiology consult appreciated digoxin discontinued, cont amiodarone, BB increased for rate control, heart rate since improved, outpt follow up for possible cardioversion
-BNP 7690 likely d/t sepsis as oppose to HF,
-ECHO appreciated EF 65-70% no significant valve abn's
#Urinary tract infection
-Leukocytosis
-UA suggestive UTI
-Urine culture appreciated E. coli resistant to fluoroquinolones
-ID eval appreciated Levaquin switched to ceftazidime, clinically improved fever resolved, IV abx de-escalated to cefdinir doxycycline to continue through 07/30 (total 7 days abx), outpatient follow up recommended
Sepsis PNA (Leukocytosis, Tachycardia)
Acute Hypoxic Insufficiency/Failure (requiring 2L saturating 93%)
-Left Lower Lobe PNA as noted on CT
-COVID Flu neg
-strep legionella urine antigen neg
-Lacti Acid wnl
-ID eval appreciated abx continued as above
-weaned off oxygen supplementation
Non-ischemic troponin elevation 2/2 sepsis afib rvr
-chest pain free
-trended to peak 0.084 since trended down
Coronary artery disease status post stent
-Continue Plavix
History of GERD
-cont Famotidine IV BID
Essential hypertension
-Continue losartan
Hyperlipidemia
-Continue statin
Obstructive sleep apnea
-Continue BiPAP at night
Type 2 diabetes
-Hold metformin
-Insulin sliding scale
Hypophosphatemia
-monitor and replete as necessary
Obesity
History of back surgery/chronic back pain
-Continue duloxetine
Full code
DVT prophylaxis-Eliquis
Regular diet
PT/OT eval appreciated HH
Medically stable for discharge home with home services and outpatient follow up recommendations.
Total Time Preparing Discharge __50 minutes including examination of the patient, summary of the hospital stay, instructions for continuing care to all relevant caregivers; and preparation of discharge records, prescriptions, and referral
forms if necessary.
Anticipated Discharge: Today
Subjective/Interval History
-
Date of Service: July 29, 2023
Seen and examined at bedside in no acute distress resting comfortably in bed. Reports overall feeling well. Denies new acute issues at this time. Eager to go home
Objective Data
-
Labs:
Laboratory Results
07/29/23
06:00
WBC Pending
Hgb Pending
Hct Pending
Plt Count Pending
Sodium Pending
Potassium Pending
Chloride Pending
Carbon Dioxide Pending
BUN Pending
Creatinine Pending
Glucose Pending
Calcium Pending
Vital Signs:
Vital Signs
Temp Pulse Resp BP Pulse Ox
97.9 F 72 18 114/58 94
07/29/23 03:00 07/29/23 03:00 07/29/23 03:00 07/29/23 03:00 07/29/23 03:00
I&O
07/28/23 07/29/23 07/30/23
06:59 06:59 06:59
Intake Total 540 / 540 660 / 660
Balance 540 / 540 660 / 660
[2023-07-29 07:43] VITALS: BP 133/74
[2023-07-29 08:20] LABS: Glucose - Point of Care 188 mg/dl (70-99)
[2023-07-29] MEDS: OMNICEF 300 MG PO (08:22)
[2023-07-29] MEDS: CYMBALTA DELAYED RELEASE 60 MG PO (08:22)
[2023-07-29] MEDS: PACERONE 200 MG PO (08:22)
[2023-07-29] MEDS: VIBRAMYCIN 100 MG PO (08:22)
[2023-07-29] MEDS: TOPROL XL 75 MG PO (08:23)
[2023-07-29] MEDS: PLAVIX 75 MG PO (08:23)
[2023-07-29] MEDS: NOVOLOG FLEXPEN-LOW RESISTANCE 1 UNITS SC ×2 (08:24→17:02)
[2023-07-29] MEDS: ELIQUIS 5 MG PO (08:24)
[2023-07-29] MEDS: PEPCID 20 MG IV (08:25)
[2023-07-29] MEDS: NSS (PRESERVATIVE FREE) 8 ML IV (08:25)
[2023-07-29 10:30] LABS: Hemoglobin 9.9 g/dL (12.0-16.0); Mean Corp Hgb Conc. 34.1 g/dL (33.0-37.0); Mean Corpuscular Hgb 27.9 pg (27.0-31.0); Mean Corpuscular Volume 81.7 fL (81.0-99.0); Mean Platelet Volume 10.2 fL (7.4-10.4); Platelet Count 225 10^3/uL (130-400); Red Blood Cell Count 3.55 10^6/uL (4.20-5.40); Red Cell Dist. Width 14.7 % (11.5-14.5); White Blood Cell Count 7.4 10^3/uL (4.8-10.8)
[2023-07-29 10:57] LABS: Blood Urea Nitrogen 10 mg/dl (7-17); Calcium 8.5 mg/dl (8.4-10.2); Carbon Dioxide 26 mmol/L (22-30); Chloride 97 mmol/L (98-107); Estimated Creatinine Clearance 88 ml/min; Glucose 210 mg/dl (70-99); Magnesium 2.1 mg/dl (1.6-2.3); Phosphorus 2.4 mg/dl (2.5-4.5); Potassium 3.4 mmol/L (3.5-5.1); Sodium 132 mmol/L (135-145); eGFR > 60.00
[2023-07-29 11:07] VITALS: BP 113/65
[2023-07-29 11:52] LABS: Glucose - Point of Care 247 mg/dl (70-99)
[2023-07-29] MEDS: KCL 40 MEQ PO (11:52)
[2023-07-29 12:15] VITALS: PULSE 70
[2023-07-29] MEDS: NOVOLOG FLEXPEN-LOW RESISTANCE 2 UNITS SC (12:38)
--- NOTE | 2023-07-29 13:43 | W.PN.ID1 ---
Date of Service
Date of Service: July 29, 2023
Today's Communication
- switch to cefdinir/doxycycline to complete 7 days, through 07/30
- CXR in 6 weeks outpatient and follow up in my office
Assessment / Plan
Dense LLL Pneumonia
Fever - persistent
Recent long stay in [place]
Allergy to amoxicillin
- unable to produce a sputum
- blood cultures x2 in progress, no growth to date
- switch to cefdinir/doxycycline to complete 7 days, through 07/30
- CXR in 6 weeks outpatient and follow up in my office
UTI
- cefdinir - as above
Chief Complaint
-: Fever
Subjective / Review of Systems
afebrile
bp stable
without leukocytosis
cr stable
blood cultures no growth to date
never produced a sputum
Vital Signs / Physical Exam
Vital Signs
Vital Signs
Temp Pulse Resp BP Pulse Ox
97.9 F 74 16 113/65 96
07/29/23 11:07 07/29/23 11:07 07/29/23 11:07 07/29/23 11:07 07/29/23 11:07
Physical Exam
Constitutional: No Acute Distress
Cardiovascular: Regular Rate and S1/S2; Negative Murmur or Rub
Pulmonary: Clear and Symmetric; Negative Wheezes or Rales
Gastrointestinal: Soft, Non Tender, Non Distended and Normal Bowel Sounds
Skin: Warm and Dry; Negative Rash or Jaundice
Objective Data
Lab Data
Lab Results
07/29/23 10:01
07/29/23 10:01
Estimated Creat Clear 88 ml/min 07/29/23 10:01
Lactic Acid 1.8 mmol/L (0.7-2.0) 07/26/23 09:37
Total Bilirubin 2.0 mg/dl (0.2-1.3) H D 07/28/23 05:38
AST 48 U/L (14-36) H 07/28/23 05:38
ALT 33 U/L (0-35) 07/28/23 05:38
Alkaline Phosphatase 60 U/L (38-126) 07/28/23 05:38
Most recent labs reviewed.
Micro Results:
07/26/23 10:20 Blood Culture - Preliminary
Blood/Venous No Growth in 72 hours- Final report to follow
07/26/23 09:36 Blood Culture - Preliminary
Blood/Venous No Growth in 72 hours- Final report to follow
07/25/23 16:38 Urine Culture - Final
Urine Escherichia coli
07/25/23 16:38 Legionella Urinary Antigen - Final
Urine Negative for Legionella pneumophila Serogroup 1 antigen.
A negative result does not rule out the possiblity of
Legionella infection due to other serogroups or species of
Legionella. Clinical correlation is recommended.
Streptococcus pneumoniae Antigen (M - Final
Negative for Streptococcus pneumoniae antigen.
A negative result does not exclude infection with
Streptococcus pneumoniae. Clinical correlation is
recommended.
07/25/23 16:38 Influenza Types A & B (JOSÉ MIGUEL) - Final
Nasal Swab Negative for Influenza A & B, NAAT
Negative results must be combined with clinical observations
and patient history.
Nucleic Acid Amplification test (NAAT)performed on the
[employer] platform.
--- NOTE | 2023-07-29 13:44 | CM ---
Addendum entered by Maryan Kiser 07/29/23 13:58:
Daughter will provide transport home
Addendum entered by Maryan Kiser 07/29/23 13:57:
home health referral sent to [facility] via [facility]; referral accepted
Original Note:
Case Management consult completed; PT recommended home health for skilled PT
IMM benefit explained; patient signed form @ 1340
Plan: discharge to home today with home health services from [facility]
--- NOTE | 2023-07-29 14:27 | W.DCSUMMARY ---
Discharge Summary
Discharge Data
Date of Admission: 07/26/23
Date of Discharge: 07/29/23
-
Pending Results: No
Hospital Course
82F afib CAD stent Feb 2023 Eliquis Plavix HTN HLD DM YOSELIN BIPAP bedtime Obesity GERD p/w Epigastric abdominal pain spasm nausea vomiting resolved, unclear etiology, possibly d/t sepsis pna vs uti. Lipase unremarkable. CTA chest/abdomen negative
for dissection aneurysm or pulmonary embolism, noted mild fatty liver disease, left lower lobe lung pna with small left pleural effusion. GI evaluated and recommended outpatient follow up with her GI doctor Dr Gramajo at [facility], in regards to
Fatty Liver Disease. Symptomatic recurrence of atrial fibrillation, EKG showed atrial fibrillation, left anterior fascicular block, delta waves in lateral leads which appeared new without any notable ST T wave changes. Eliquis and Metoprolol were
continued. Recently started on Amiodarone and Digoxin following hospitalization in [facility] last month while visiting son. Digoxin level was noted subtherapeutic. Cardiology evaluated and digoxin was discontinued, amiodarone was continued, and
BB was increased for better rate control. Outpatient follow up for cardioversion was recommended. BNP 7690 likely d/t sepsis as oppose to HF. ECHO appreciated EF 65-70% no significant valve abn's. Urinary tract infection, Leukocytosis, UA
suggestive UTI, Urine culture appreciated E. coli resistant to fluoroquinolones. ID evaluated and recommended Levaquin switch to ceftazidime, clinically improved fever resolved. IV abx were then de-escalated to oral cefdinir and doxycycline, to
continue through 07/30 (total 7 days abx). Outpatient follow up ID was recommended. Sepsis PNA (Leukocytosis, Tachycardia), acute hypoxic insufficiency/failure (requiring 2L saturating 93%), left Lower lobe PNA as noted on CT, COVID Flu neg, strep
legionella urine antigen neg, Lacti Acid wnl, patient improved with antibiotics as aforementioned and was weaned off oxygen supplementation. Non-ischemic troponin elevation 2/2 sepsis afib rvr, patient chest pain free, troponin trended to peak
0.084 since trended down. Medically stable, patient was discharged home with home services and outpatient follow up recommendations.
Discharge Plan
-
Patient Disposition: Home with Home Care
Discharge Diagnosis/Procedures: Pneumonia, Urinary Tract Infection, Atrial Fibrillation Rapid Ventricular Rate, Fatty Liver Disease, Coronary Artery Disease, Diabetes, Hypertension, Hyperlipidemia, GERD, Obstructive Sleep Apnea, Obesity
Condition: Fair
Diet: Low Fat, Low Cholesterol, 2 Gram Sodium and Diabetic, Carb Controlled
Activity: As tolerated and With Walker
Driving Restrictions: As prior to admission
Bathing Restrictions: None
Blood Work: Please repeat CBC and CMP with primary care provider in 1 week of discharge.
Others Tests: Please repeat Chest XR with primary care provider or infectious disease in 6 weeks of discharge.
Other Services: VN, PT and OT
Activity Restrictions/Additional Instructions:
Please follow up with primary care provider in 1 week of discharge, keep your appointment with Cardiology, follow up with your GI doctor in 2-4 weeks of discharge, and follow up with Infectious disease in 6 weeks of discharge.
For pneumonia and urinary tract infection, you've been prescribed cefdinir and doxycycline to continue through 07/30 then stop.
Doxycycline Precautions
Take with at least 6 oz H2O
Take with food but no calcium containing products like milk or cheese
Ideally you would not take any multivitamins, calcium, magnesium or zinc containing products.
If you must take one of these products make sure that the pills are by at least 3 hours.
Sit up for at least 30 minutes after each dose to prevent heartburn.
Your skin will be more sensitive to the sun while you are on doxycycline - it will be very easy for you to get a sunburn.
For atrial fibrillation, home metoprolol dose has been increased for better rate control
Home digoxin has been discontinued due to concern triggering GI symptoms/discomfort.
Please take medications as prescribed/recommended and follow up with primary care provider and/or other healthcare provider involved in your care for refills and/or further adjustment to your medication regimen as necessary.
Instructions: Urinary Tract Infection, Adult (DC), Community-Acquired Pneumonia, Adult (DC)
Referrals:
Duran Gupta MD [Active] - 08/02/23 10:20 am (You have a follow up appointment at the [facility] office. Please call with questions.)
Christian Gandara DO [Family Provider] - in one week
Marco Gramajo MD [Non-Admitting Privileges] - in two to four weeks (GI follow up after discharge )
Maryanne Toney MD [Active] - in six weeks
Prescriptions:
Continued
Eliquis 5 MG tablet
5 mg PO BID
duloxetine 60 mg Capsule, Delayed Rel Sprinkle
60 mg PO DAILY
metformin 500 mg Tablet
500 mg PO BID
amiodarone 200 mg Tablet
200 mg PO DAILY
Patient Comments:
07/25/2023: Pt just came home last tuesday from [facility], this medication was prescribed while there.
Discontinued
metoprolol succinate 25 MG tablet extended release 24 hr
50 mg PO BID
digoxin 250 mcg (0.25 mg) Tablet
0.25 mg PO BID
Patient Comments:
07/25/2023: Pt just came home last tuesday from [facility], this medication was prescribed while there.
No Action
famotidine [Pepcid] 40 mg Tablet
40 mg PO HS MDD stomach
atorvastatin [Lipitor] 80 mg tablet
80 mg PO HS
metoprolol succinate 50 mg tablet extended release 24 hr
75 mg PO BID
clopidogrel [Plavix] 75 mg tablet
75 mg PO DAILY
Discharge Orders:
Discharge Patient (As Directed); Ordered 07/29/23
Ordered By: Ten Han
Discharge Date and Time
Discharge Date/Time: 07/29/23 17:53
Print Language: LITHUANIAN
[2023-07-29 15:00] VITALS: BP 129/65
[2023-07-29 17:01] LABS: Glucose - Point of Care 186 mg/dl (70-99)
== END 2023-07-29 17:53 | disposition home health service (06) | DRG 871 ==
LOC: 4 WEST ACU 09:05
PROVIDERS: Emergency Medicine; Physician Assistant; ADMITTING PHYSICIAN Hospitalist; ATTENDING PHYSICIAN Internal Medicine; CONSULT PHYSICIAN Internal Medicine Gastroenterology; CONSULT PHYSICIAN Nuclear Medicine Nuclear Cardiology; EMERGENCY PHYSICIAN Emergency Medicine; FAMILY PHYSICIAN Family Medicine; OTHER PHYSICIAN Student in an Organized Health Care Education/Training Program
DX: A41.9 Sepsis, unspecified organism (principal); J18.9 Pneumonia, unspecified organism; N39.0 Urinary tract infection, site not specified; I5A Non-ischemic myocardial injury (non-traumatic); Z79.02 Long term (current) use of antithrombotics/antiplatelets; Z87.891 Personal history of nicotine dependence; Z79.01 Long term (current) use of anticoagulants; I48.0 Paroxysmal atrial fibrillation; R09.02 Hypoxemia; I10 Essential (primary) hypertension; E78.00 Pure hypercholesterolemia, unspecified; G47.33 Obstructive sleep apnea (adult) (pediatric); E11.9 Type 2 diabetes mellitus without complications; E66.9 Obesity, unspecified; K21.9 Gastro-esophageal reflux disease without esophagitis; Z88.0 Allergy status to penicillin; Z95.5 Presence of coronary angioplasty implant and graft; I25.10 Atherosclerotic heart disease of native coronary artery without angina pectoris; E83.39 Other disorders of phosphorus metabolism; Z11.52 Encounter for screening for COVID-19
CPT/HCPCS: 71046; 71275; 74174; 76705; 80048; 80053; 80162; 81003; 81015; 82248; 82962; 83036; 83605; 83690; 83735; 83880; 84100; 84484; 85025; 85027; 87040; 87077; 87086; 87186; 87449; 87502; 87811; 87899; 93005; 93306; 94660; 96361; 96374; 97116; 97162; 97166; 99285; Q9967

== ENCOUNTER → 2023-08-04 09:46 | Day surgery (SDC) | payer MEDICARE, SELFPAY ==
--- NOTE | 2023-08-04 10:44 | ITS.CL.CARDI ---
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
Cardioversion
Procedure Report:
Date of Procedure:
Procedure: Cardioversion
Indication: Symptomatic atrial fibrillation
Performing Physician: Duran Gupta MD
Technique: The patient was brought to the holding area. Signed informed consent was obtained. A time out was called and performed. The patient was anesthetized by the anesthesia service. Anticoagulation status was reviewed and appropriate. R2 pads
were placed anteriorly and posteriorly. A 200 J synchronized biphasic shock restored normal sinus rhythm without significant bradycardia. There were no complications.
Conclusion: Uncomplicated cardioversion from atrial fibrillation to sinus rhythm.
Recommendation: Routine post cardioversion care. Continue assisted anticoagulation.
[2023-08-04 10:48] LABS: Glucose - Point of Care 148 mg/dl (70-99)
== END ==
LOC: CATH 09:46
PROVIDERS: ATTENDING PHYSICIAN Internal Medicine Cardiovascular Disease; FAMILY PHYSICIAN Family Medicine
DX: I48.0 Paroxysmal atrial fibrillation (principal); I10 Essential (primary) hypertension; E78.2 Mixed hyperlipidemia; G47.33 Obstructive sleep apnea (adult) (pediatric); E11.9 Type 2 diabetes mellitus without complications; E66.9 Obesity, unspecified; Z68.36 Body mass index [BMI] 36.0-36.9, adult; Z79.01 Long term (current) use of anticoagulants; Z79.84 Long term (current) use of oral hypoglycemic drugs
CPT/HCPCS: 82962; 92960; 93005

== ENCOUNTER → 2023-08-10 15:49 | Outpatient (REF) | payer MEDICARE, SELFPAY | LOC: RAD 15:49 | PROVIDERS: ATTENDING PHYSICIAN Student in an Organized Health Care Education/Training Program; FAMILY PHYSICIAN Family Medicine | DX: J18.9 Pneumonia, unspecified organism (principal) | CPT/HCPCS: 71046 ==

== ENCOUNTER → 2024-03-23 10:52 | Outpatient (REF) | payer MEDICARE, SELFPAY ==
[2024-03-23 12:43] LABS: ALT (SGPT) 24 U/L (0-35); AST (SGOT) 19 U/L (14-36); Albumin 4.6 g/dl (3.5-5.0); Alkaline Phosphatase 53 U/L (38-126); Blood Urea Nitrogen 17 mg/dl (7-17); Calcium 9.6 mg/dl (8.4-10.2); Carbon Dioxide 28 mmol/L (22-30); Chloride 101 mmol/L (98-107); Glucose 164 mg/dl (70-99); HDL Cholesterol 42 mg/dl; LDL Cholesterol, Calculated 111 mg/dl; Potassium 4.5 mmol/L (3.5-5.1); Sodium 141 mmol/L (135-145); Total Bilirubin 1.1 mg/dl (0.2-1.3); Total Cholesterol 186 mg/dl (50-199); Total Protein 7.5 g/dl (6.3-8.2); Triglyceride 167 mg/dl (10-149); Very Low Density Lipoprotein 33 mg/dl (0-30); eGFR > 60.00
== END ==
LOC: REG 10:52
PROVIDERS: ATTENDING PHYSICIAN Physician Assistant Medical; FAMILY PHYSICIAN Family Medicine
DX: E78.2 Mixed hyperlipidemia (principal); I25.118 Atherosclerotic heart disease of native coronary artery with other forms of angina pectoris
CPT/HCPCS: 36415; 80053; 80061

== ENCOUNTER 2024-07-13 16:19 | Emergency (ER) | payer MEDICARE, SELFPAY ==
[2024-07-13 16:20] VITALS: BP 169/82
--- NOTE | 2024-07-13 17:05 | ED.GENMED ---
History of Present Illness
General
Chief Complaint: Blood Pressure Problem
Source: patient
Exam Limitations: none
Time Seen by Provider: 07/13/24 16:50
Nursing documentation reviewed up to this point in time: agreed with
History of Present Illness
History of Present Illness:
83-year-old female with past medical history of paroxysmal A-fib, cardioversion, hypertension diabetes obesity reflux, cardiac stent presents to the ER for evaluation. Patient was at the dentist today and was told her blood pressure was elevated
to 190s. She reports she was at the dentist around 12 PM which is normal at the time she takes her medicine. She went home took her medicine and it waited an hour and a half went to the pharmacy to check her blood pressure was still elevated.
She denies any headache nausea vomiting, blurry vision .
She reports she has intermittent chest pressure' all of the time.' She does have some chest pressure now.
Review of Systems
Review of Systems
Allergies reviewed?: Yes
All Other Systems: ROS reviewed and negative except as documented in HPI and ROS
Constitutional: Reports no symptoms; Denies fever, fatigue or chills
Respiratory: Reports no symptoms
Cardiac: Reports chest pain (chest pressure )
ABD/GI: Reports no symptoms
: Reports no symptoms
Musculoskeletal: Reports no symptoms
Skin: Reports no symptoms
Neurological: Denies dizzy or headache
Psychiatric: Reports no symptoms
Phy Exam
General Physical Exam
General Presentation: no apparent distress
General age: appears stated age
General Skin: warm and dry
General Habitus: normal
General Mental: alert
General Hydration: appears well hydrated
Cardiovascular Exam
Cardiovascular Exam: regular rate/rhythm, no murmur and normal peripheral pulses
Pulmonary Exam
Pulmonary Exam: lungs clear and no respiratory distress
Neurological Exam
Neurological Exam: alert and oriented x3
Musculoskeletal Exam
Musculoskeletal Exam: full ROM
Skin Exam
Skin Exam: normal color and warm/dry
Psychiatric Exam
Psychiatric Exam: normal mood/affect
Course
Orders/Labs/Results
Orders:
Orders
07/13/24 16:24
Electrocardiogram (*1) Urgent
Reason for Study: Hypertension, Benign
EKG- Treatment ONCE
07/13/24 17:05
Electrocardiogram (*1) Stat
Reason for Study: Abdominal Pain
Cardiac Monitoring- Treatment ONCE
EKG- Treatment ONCE
IV Insert/Care/Rem.- Treatment PRN
07/13/24 17:20
Complete Blood Count/With Diff Urgent
Comprehensive Metabolic Panel Urgent
Troponin I Urgent
Abnormal Lab Results
07/13/24
17:20
RBC 3.96 L 10^6/uL
(4.20-5.40)
Hgb 10.7 L g/dL
(12.0-16.0)
Hct 32.6 L %
(37.0-47.0)
MCHC 32.8 L g/dL
(33.0-37.0)
Absolute Monos (auto) 0.7 H 10^3/uL
(0.1-0.6)
BUN 19 H mg/dl
(7-17)
Glucose 207 H mg/dl
(70-99)
07/13/24 17:20
07/13/24 17:20
Vital Signs
Initial and Last Documented VS:
Initial Vital Signs
Temp Pulse Resp BP Pulse Ox
98.0 F 68 18 169/82 98
07/13/24 16:20 07/13/24 16:20 07/13/24 16:20 07/13/24 16:20 07/13/24 16:20
Last Documented Vital Signs
Temp Pulse Resp BP Pulse Ox
98.0 F 61 18 140/60 97
07/13/24 16:20 07/13/24 18:00 07/13/24 18:00 07/13/24 18:00 07/13/24 18:00
Trim Master Operator consulted with Physician
Trim Master Operator consulted with physician?: Yes
Name of Physician Consulted: Ramakrishna
MDM/Problems Addressed
MDM/Problems Addressed:
As documented patient is an 83-year-old female with history of hypertension presents for elevated blood pressure. She was at the dentist office today around 12 PM normally takes her blood pressure medication at 1 PM. She did not take her medicine
yet and while at the dentist office her blood pressure was found to be high. She took her blood pressure medicine when she got home waited an hour and a half it was still high and presented to the ER. She has intermittent chest pressure which is
not new she does have history of stent. She presents awake alert no acute distress.
While patient has been here her blood pressure has gradually decreased on its own. She has taken all of her medicines today. Her kidney function is normal her cardiac troponin which was done because of intermittent chest pressure which is not new
is normal, nothing acute on EKG she is stable for discharge home.no chest pressure now .
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
Case reviewed with ED physician
*Pulse Oximetry
Patient hypoxic: no
*EKG
Interpreted by ED Provider?: Yes
Interpretation: abnormal
Heart Rate: 66
Rate: normal
Rhythm: sinus
Ischemia: non-specific ST changes
*Critical Care Note
Total Time (30-74mins, 75-104mins- exclusive of procedures): Not Applicable
ED Attending Note
-
Portions of this chart may have been created with voice recognition software.� Occasional wrong word or��sound alike� substitutions may have occurred due to the inherent limitations of voice recognition software.
Discharge Plan
Departure
Patient Disposition: Home (Routine Discharge)
Date of Disposition: 07/13/24
Time of Disposition: 18:11
Patient with high blood pressure during this ER visit?: Yes
Condition: Fair
Covid-19: Not Applicable
Discharge Problem:
elevated blood pressure
Instructions: High Blood Pressure (DC), BLOOD PRESSURE
Prescriptions:
No Action
Eliquis 5 MG tablet
5 mg PO BID
duloxetine 60 mg Capsule, Delayed Rel Sprinkle
60 mg PO DAILY
metformin 500 mg Tablet
500 mg PO BID
amiodarone 200 mg Tablet
200 mg PO DAILY
Patient Comments:
07/25/2023: Pt just came home last tuesday from [facility], this medication was prescribed while there.
famotidine [Pepcid] 40 mg Tablet
40 mg PO HS MDD stomach
atorvastatin [Lipitor] 80 mg tablet
80 mg PO HS
metoprolol succinate 50 mg tablet extended release 24 hr
75 mg PO BID
clopidogrel [Plavix] 75 mg tablet
75 mg PO DAILY
Referrals:
Duran Gupta MD [Active] -
Activity Restrictions/Additional Instructions:
As discussed please continue to take your blood pressure medications. Follow-up closely with your dry transfer worker as scheduled.
Follow low-salt diet, return if any worsening of symptoms
Interventions
Interventions:
*Risk Screen - Suicide Last Done: 07/13/24 16:20
*General Assessment Last Done: 07/13/24 16:20
*Neglect/Abuse Screening Last Done: 07/13/24 16:20
ED- Cardiac Assessment Last Done: 07/13/24 17:28
ED- Neurological Assessment Last Done: 07/13/24 17:28
ED- Pulmonary Assessment Last Done: 07/13/24 17:28
Discharge Date and Time
Print Language: MARTINIQUAIS
[2024-07-13 17:30] LABS: % Basophils 0.5 % (0-2); % Eosinophils 2.3 % (0-6); % Immature Granulocytes 0.4 % (0-0.5); % Lymphocytes 27.1 % (20.5-51.1); % Monocytes 8.8 % (1.7-9.3); % Neutrophils 60.9 % (42.2-75.2); Absolute Eosinophils 0.2 10^3/uL (0-0.7); Absolute Lymphocytes 2.2 10^3/uL (1.2-3.4); Absolute Monocytes 0.7 10^3/uL (0.1-0.6); Hematocrit 32.6 % (37.0-47.0); Hemoglobin 10.7 g/dL (12.0-16.0); Mean Corp Hgb Conc. 32.8 g/dL (33.0-37.0); Mean Corpuscular Volume 82.3 fL (81.0-99.0); Mean Platelet Volume 9.9 fL (7.4-10.4); Nucleated Red Blood Cells % 0 %; Platelet Count 188 10^3/uL (130-400); Red Blood Cell Count 3.96 10^6/uL (4.20-5.40); Red Cell Dist. Width 14.1 % (11.5-14.5); White Blood Cell Count 8.2 10^3/uL (4.8-10.8)
[2024-07-13 17:32] VITALS: BP 160/84
[2024-07-13 17:47] LABS: ALT (SGPT) 22 U/L (0-35); AST (SGOT) 21 U/L (14-36); Albumin 4.4 g/dl (3.5-5.0); Alkaline Phosphatase 53 U/L (38-126); Blood Urea Nitrogen 19 mg/dl (7-17); Calcium 9.3 mg/dl (8.4-10.2); Carbon Dioxide 29 mmol/L (22-30); Chloride 102 mmol/L (98-107); Glucose 207 mg/dl (70-99); Potassium 4.4 mmol/L (3.5-5.1); Sodium 137 mmol/L (135-145); Total Bilirubin 0.9 mg/dl (0.2-1.3); Total Protein 7.2 g/dl (6.3-8.2); eGFR > 60.00
[2024-07-13 17:51] LABS: Troponin I < 0.012 ng/ml
[2024-07-13 18:00] VITALS: BP 140/60
== END 2024-07-13 18:49 | disposition home or self-care (01) ==
LOC: EMR 16:19
PROVIDERS: Nurse Practitioner; EMERGENCY PHYSICIAN Student in an Organized Health Care Education/Training Program; FAMILY PHYSICIAN Family Medicine
DX: R07.89 Other chest pain (principal); I10 Essential (primary) hypertension; I48.0 Paroxysmal atrial fibrillation; E11.9 Type 2 diabetes mellitus without complications; Z95.5 Presence of coronary angioplasty implant and graft
CPT/HCPCS: 99284; 80053; 84484; 85025; 93005

== ENCOUNTER → 2024-08-10 07:52 | Outpatient (REF) | payer MEDICARE, SELFPAY ==
[2024-08-10 09:50] LABS: ALT (SGPT) 26 U/L (0-35); AST (SGOT) 23 U/L (14-36); Albumin 4.2 g/dl (3.5-5.0); Alkaline Phosphatase 58 U/L (38-126); Blood Urea Nitrogen 13 mg/dl (7-17); Calcium 9.7 mg/dl (8.4-10.2); Carbon Dioxide 26 mmol/L (22-30); Chloride 105 mmol/L (98-107); Glucose 117 mg/dl (70-99); HDL Cholesterol 40 mg/dl; LDL Cholesterol, Calculated 76 mg/dl; Potassium 4.6 mmol/L (3.5-5.1); Sodium 142 mmol/L (135-145); Total Bilirubin 1.1 mg/dl (0.2-1.3); Total Cholesterol 144 mg/dl (50-199); Total Protein 7.1 g/dl (6.3-8.2); Triglyceride 143 mg/dl (10-149); Very Low Density Lipoprotein 28 mg/dl (0-30); eGFR > 60.00
[2024-08-10 10:00] LABS: TSH Reflex To Free T4 3.55 uIU/ml (0.47-4.68)
== END ==
LOC: REG 07:52
PROVIDERS: ATTENDING PHYSICIAN Internal Medicine Cardiovascular Disease; FAMILY PHYSICIAN Family Medicine
DX: I48.0 Paroxysmal atrial fibrillation (principal); E78.2 Mixed hyperlipidemia
CPT/HCPCS: 36415; 80053; 80061; 84443

== ENCOUNTER → 2024-09-13 11:16 | Outpatient (REF) | payer MEDICARE, SELFPAY | LOC: HWRCS 11:16 | PROVIDERS: ATTENDING PHYSICIAN Internal Medicine Cardiovascular Disease; FAMILY PHYSICIAN Family Medicine | DX: R06.09 Other forms of dyspnea (principal) | CPT/HCPCS: 93306 ==

== ENCOUNTER → 2025-03-28 09:50 | Outpatient (REF) | payer MEDICARE, SELFPAY | LOC: HWRAD 09:50 | PROVIDERS: ATTENDING PHYSICIAN Internal Medicine Cardiovascular Disease; FAMILY PHYSICIAN Family Medicine | DX: Z13.6 Encounter for screening for cardiovascular disorders (principal) | CPT/HCPCS: 76770 ==

== ENCOUNTER → 2025-04-16 08:59 | Outpatient (REF) | payer MEDICARE, SELFPAY | LOC: RSP 08:59 | PROVIDERS: ATTENDING PHYSICIAN Physician Assistant Medical; FAMILY PHYSICIAN Family Medicine | DX: R06.09 Other forms of dyspnea (principal) | CPT/HCPCS: 88738; 94010; 94727; 94729 ==